=== PATIENT | female | born 1980 ===

== ENCOUNTER 2022-08-12 16:48 | Emergency (ER) | payer OTHER ==
--- OUTSIDE RECORDS SUMMARY | 2022-08-12 16:53 | XMS REPORT | Continuity of Care Document ---
:1980 Author Organization [facility] t Address [address] [place] [address] [address] [place] [address] Care Team Providers Name Role Phone Dulce Abbott Attending Clinician Unavailable DORIAN_ADAC_Cathey Attending Clinician Unavailable Binta Hood Attending Clinician [phone] Sherry Pineda Attending Clinician Unavailable Belén Blackburn Attending Clinician Unavailable Radiology Attending Clinician Unavailable RADIOLOGY Attending Clinician Unavailable Dulce Abbott Admitting Clinician Unavailable SHERLY_Cathxenia Admitting Clinician Unavailable Belén Blackburn Admitting Clinician Unavailable Payers Payer Name Policy Type Policy Number Effective Date Expiration Date [facility] [id number] 2012 2022 00:00:00 00:00:00 Problems Condition Condition Condition Status Onset Resolution Last Treating Co mments Source Name Details Category Date Date Treatment Clinician Date Body mass Body Mass Problem Active Zabrina via index 30+ Index 30+ 10-29 Medi marcellus - obesity - Obesity 00:00: 00 Prolapse Prolapse Problem Active [facility] a of female of Female 10-29 Medi marcellus genital Genital 00:00: organs Organs 00 Female Female Problem Active [facility] stress Stress 10-29 Medical incontinen Incontinen 00:00: ce ce 00 Allergies, Adverse Reactions, Alerts Allergy Allergy Status Severity Reaction(s) Onset Inactive Treating Comm ents Source Name Type Date Date Clinician Sulfa DA Active SV REDDENED 2021-02 [facility] (Sulfona SKIN FROM 0-21 Glory an mide HEAD TO TOE 00:00: d Antibiot AND HEADACHE 00 Me dical ics) Center NO KNOWN Drug Active Univers ALLERGIE Class ity of S [facility] SULFA Allergy Active Fever [facility] (SULFONA to Medical MIDE substanc ANTIBIOT e ICS) Social History Social Habit Start Date Stop Date Quantity Comments Source Sex Assigned At [address] [facility] 00:00:00 00:00:00 Medical Branch Smoking Status Start Date Stop Date Source Never Smoker [facility] Medical Unknown if ever smoked [facility] Medications Ordered Filled Start Stop Current Ordering Indication Dosage Frequency Signature Comments Components Source Medication Medication Date Date Medication? Clinician (SIG) Name Name Advil Advil No Advil [facility] B12 B12 No B12 [facility] ibuprofen ibuprofen No 1 Q8H ibuprofen [facility] 800 mg 800 mg 800 mg Medical tablet Take tablet Take tablet 1 tablet 1 tablet Take 1 every 8 every 8 tablet hours by hours by every 8 oral route oral route hours by as needed. as needed. oral route postoperati postoperati as needed. ve pain ve pain postoperat mike pain Prilosec Prilosec No Prilosec Zabrina via Medical Probiotic Probiotic No Probiotic [facility] Tylenol Tylenol No Tylenol [facility] Zyrtec 10 Zyrtec 10 No Zyrtec 10 [facility] mg capsule mg capsule mg capsule Medical Take by Take by Take by oral route. oral route. oral route. Advil Advil No Advil [facility] B12 B12 No B12 [facility] fluconazole fluconazole No fluconazol [facility] 200 mg 200 mg e 200 mg Medical tablet TAKE tablet TAKE tablet 1 TABLET 1 TABLET TAKE 1 ORALLY ONCE ORALLY ONCE TABLET AND REPEAT AND REPEAT ORALLY IN 72 HOURS IN 72 HOURS ONCE AND REPEAT IN 72 HOURS nitrofurant nitrofurant No 1capsul Q12H nitrofuran [facility] oin oin e(s) toin Medical monohydrate monohydrate monohydrat /macrocryst /macrocryst e/macrocry als 100 mg als 100 mg stals 100 capsule capsule mg capsule Take 1 Take 1 Take 1 capsule capsule capsule every 12 every 12 every 12 hours by hours by hours by oral route oral route oral route for 7 days. for 7 days. for 7 days. Prilosec Prilosec No Prilosec Zabrina via Medical Probiotic Probiotic No Probiotic [facility] Tylenol Tylenol No Tylenol [facility] Urogesic-Bl Urogesic-Bl No 1 Q6H Urogesic-B [facility] ue 81.6 ue 81.6 lue 81.6 Medic al mg-40.8 mg-40.8 mg-40.8 mg-0.12 mg mg-0.12 mg mg-0.12 mg tablet Take tablet Take tablet 1 tablet 1 tablet Take 1 every 6 every 6 tablet hours by hours by every 6 oral route oral route hours by as needed. as needed. oral route as needed. Zyrtec 10 Zyrtec 10 No Zyrtec 10 [facility] mg capsule mg capsule mg capsule Medical Take by Take by Take by oral route. oral route. oral route. Advil Advil No Advil [facility] B12 B12 No B12 [facility] gabapentin gabapentin No 1capsul Q1D gabapentin [facility] 300 mg 300 mg e(s) 300 mg Medical capsule capsule capsule Take 1 Take 1 Take 1 capsule capsule capsule every day every day every day by oral by oral by oral route at route at route at bedtime for bedtime for bedtime 90 days. 90 days. for 90 days. Prilosec Prilosec No Prilosec Zabrina via Medical Probiotic Probiotic No Probiotic [facility] Tylenol Tylenol No Tylenol [facility] Zyrtec 10 Zyrtec 10 No Zyrtec 10 [facility] mg capsule mg capsule mg capsule Medical Take by Take by Take by oral route. oral route. oral route. Advil Advil No Advil [facility] B12 B12 No B12 [facility] nitrofurant nitrofurant No nitrofuran [facility] oin oin toin Medical monohydrate monohydrate monohydrat /macrocryst /macrocryst e/macrocry als 100 mg als 100 mg stals 100 capsule capsule mg capsule Take 1 Take 1 Take 1 capsule(s) capsule(s) capsule(s) after each after each after each visit visit visit Prilosec Prilosec No Prilosec Zabrina via Medical Probiotic Probiotic No Probiotic [facility] Tylenol Tylenol No Tylenol [facility] Zyrtec 10 Zyrtec 10 No Zyrtec 10 [facility] mg capsule mg capsule mg capsule Medical Take by Take by Take by oral route. oral route. oral route. Advil Advil No Advil [facility] B12 B12 No B12 [facility] docusate docusate No 2capsul Q1D docusate [facility] sodium 100 sodium 100 e(s) sodium 100 Medical mg capsule mg capsule mg capsule Take 2 Take 2 Take 2 capsules capsules capsules every day every day every day by oral by oral by oral route at route at route at bedtime for bedtime for bedtime 90 days. 90 days. for 90 Stool Stool days. softener softener Stool softener hydrocodone hydrocodone No 1 Q6H hydrocodon [facility] 5 5 e 5 Medical mg-acetamin mg-acetamin mg-acetami ophen 325 ophen 325 nophen 325 mg tablet mg tablet mg tablet Take 1 Take 1 Take 1 tablet tablet tablet every 6 every 6 every 6 hours by hours by hours by oral route oral route oral route as needed. as needed. as needed. for for for postoperati postoperati postoperat ve pain ve pain mike pain ibuprofen ibuprofen No 1 Q8H ibuprofen [facility] 800 mg 800 mg 800 mg Medical tablet Take tablet Take tablet 1 tablet 1 tablet Take 1 every 8 every 8 tablet hours by hours by every 8 oral route oral route hours by as needed. as needed. oral route postoperati postoperati as needed. ve pain ve pain postoperat mike pain nitrofurant nitrofurant No nitrofuran [facility] oin oin toin Medical monohydrate monohydrate monohydrat /macrocryst /macrocryst e/macrocry als 100 mg als 100 mg stals 100 capsule 1 capsule 1 mg capsule capsule capsule 1 capsule nightly if nightly if nightly if discharged discharged discharged home with home with home with [facility] catheter catheter catheter Prilosec Prilosec No Prilosec Zabrina via Medical Probiotic Probiotic No Probiotic [facility] Tylenol Tylenol No Tylenol [facility] Zyrtec 10 Zyrtec 10 No Zyrtec 10 [facility] mg capsule mg capsule mg capsule Medical Take by Take by Take by oral route. oral route. oral route. Advil Advil No Advil [facility] B12 B12 No B12 [facility] docusate docusate No 2capsul Q1D docusate [facility] sodium 100 sodium 100 e(s) sodium 100 Medical mg capsule mg capsule mg capsule Take 2 Take 2 Take 2 capsules capsules capsules every day every day every day by oral by oral by oral route at route at route at bedtime for bedtime for bedtime 90 days. 90 days. for 90 Stool Stool days. softener softener Stool softener ibuprofen ibuprofen No 1 Q8H ibuprofen [facility] 800 mg 800 mg 800 mg Medical tablet Take tablet Take tablet 1 tablet 1 tablet Take 1 every 8 every 8 tablet hours by hours by every 8 oral route oral route hours by as needed. as needed. oral route postoperati postoperati as needed. ve pain ve pain postoperat mike pain Prilosec Prilosec No Prilosec Zabrina via Medical Probiotic Probiotic No Probiotic [facility] Tylenol Tylenol No Tylenol [facility] Zyrtec 10 Zyrtec 10 No Zyrtec 10 [facility] mg capsule mg capsule mg capsule Medical Take by Take by Take by oral route. oral route. oral route. Advil Advil No Advil [facility] B12 B12 No B12 [facility] nitrofurant nitrofurant No nitrofuran [facility] oin oin toin Medical monohydrate monohydrate monohydrat /macrocryst /macrocryst e/macrocry als 100 mg als 100 mg stals 100 capsule capsule mg capsule Take 1 Take 1 Take 1 capsule(s) capsule(s) capsule(s) after each after each after each visit visit visit Prilosec Prilosec No Prilosec Zabrina via Medical Probiotic Probiotic No Probiotic [facility] Tylenol Tylenol No Tylenol [facility] Zyrtec 10 Zyrtec 10 No Zyrtec 10 [facility] mg capsule mg capsule mg capsule Medical Take by Take by Take by oral route. oral route. oral route. Vital Signs Vital Name Observation Time Observation Value Comments Source BP Diastolic 2022-01-26 00:00:00 90 mm[Hg] [facility]e [facility] Height 2022-01-26 00:00:00 66 [in_i] [facility] BP Systolic 2022-01-26 00:00:00 124 mm[Hg] Janee Calvert [facility] BP Diastolic 2022-01-06 00:00:00 79 mm[Hg] [facility] Height 2022-01-06 00:00:00 66 [in_i] [facility] BMI (Body Mass Index) 2022-01-06 00:00:00 34.5 kg/m2 [facility] BP Systolic 2022-01-06 00:00:00 123 mm[Hg] [facility] Body Weight 2022-01-06 00:00:00 214 [lb_av] [facility] BP Diastolic 2021-12-30 00:00:00 86 mm[Hg] [facility] Height 2021-12-30 00:00:00 66 [in_i] [facility] BMI (Body Mass Index) 2021-12-30 00:00:00 34.5 kg/m2 [facility] BP Systolic 2021-12-30 00:00:00 134 mm[Hg] [facility] Body Weight 2021-12-30 00:00:00 214 [lb_av] [facility] BP Diastolic 2021-12-16 00:00:00 78 mm[Hg] [facility] Height 2021-12-16 00:00:00 66 [in_i] [facility] BMI (Body Mass Index) 2021-12-16 00:00:00 35.5 kg/m2 [facility] BP Systolic 2021-12-16 00:00:00 131 mm[Hg] [facility] Body Weight 2021-12-16 00:00:00 220 [lb_av] [facility] Body Weight 2021-10-17 00:00:00 221 [lb_av] [facility] BP Diastolic 2021-10-17 00:00:00 88 mm[Hg] [facility] Height 2021-10-17 00:00:00 66 [in_i] [facility] BMI (Body Mass Index) 2021-10-17 00:00:00 35[facility]7 [facility] 2021-10-17 00:00:00 131 mm[Hg] [facility] M ed[facility] Procedures Procedure Date / Time Performing Clinician Source Performed Hysterectomy - Laparoscopy 2021-12-02 00:00:00 [facility] Prolapse, Lapro Repr: 2021-12-02 00:00:00 [facility] Uterosacral Lig Colpopexy MR ANKLE LEFT WO CONTRAST 2020-04-17 14:33:38 Requisition, Paper [facility] Cholecystectomy 2007-02-08 00:00:00 [facility] Plan of Care Planned Activity Planned Date Details Comments Source Diagnostic Test 2022-01-26 00:00:00 urinalysis, complete [facility] Pending [code = urinalysis, complete] Diagnostic Test 2022-01-26 00:00:00 culture, urine [code [facility] Pending = culture, urine] Encounters Start End Encounter Admission Attending Care Care Encounter Source Date/Time Date/Time Type Type Clinicians Facility Department ID 2022-03-13 2022-03-13 Outpatient MEAGAN Abbott, [facility] [id number] [facility] 12:00:00 12:00:[address] 2022-01-26 2022-01-26 Outpatient _[facility] PRIV PRIV [id number] [facility] 00:00:00 00:00:00 _Cathey [id number] Medica l 2022-01-26 2022-01-26 Outpatient _[facility] PRIV PRIV [id number] [facility] 00:00:00 00:00:00 _Cathey [id number] Medica l 2022-01-26 2022-01-26 Binta [facility] [id number] [facility] 00:00:00 00:00:00 [facility] luis manuel Hood _[facility] MD: [address], Office* [address], [place] [address] , Ph. [phone] 2022-01-19 2022-01-19 Outpatient _[facility] PRIV PRIV [id number] [facility] 00:00:00 00:00:00 _Cathey [id number] Medica l 2022-01-19 2022-01-19 Outpatient GC_[facility] PRIV PRIV [id number] [facility] 00:00:00 00:00:00 _Cathey [id number] Medica l 2022-01-06 2022-01-06 Outpatient GC_[facility] PRIV PRIV [id number] [facility] 00:00:00 00:00:00 _Cathey [id number] Medica l 2022-01-06 2022-01-06 Binta [facility] [id number] [facility] 00:00:00 00:00:00 [facility] Medic luis manuel Hood GC_[facility] MD: [address], Office* [address], [place] [address] , Ph. [phone] 2022-01-05 2022-01-05 Outpatient GC_[facility] PRIV PRIV [id number] [facility] 00:00:00 00:00:00 _Sana [id number] Medica l 2021-12-30 2021-12-30 Outpatient GC_[facility] PRIV PRIV [id number] [facility] 00:00:00 00:00:00 _Sana [id number] Medica l 2021-12-30 2021-12-30 Colleen [facility] [id number] [facility] 00:00:00 00:00:00 Daniel [employer]: Health - Fl dical [address] GC_[facility] Rebekah, _[address], [place] [address] , Ph. [phone] 2021-12-16 2021-12-16 Outpatient GC_[facility] PRIV PRIV [id number] [facility] 00:00:00 00:00:00 _Sana [id number] Medica l 2021-12-16 2021-12-16 Colleen [facility] [id number] [facility] 00:00:00 00:00:00 OLAYINKA Sanchez: Health - Me dical [address] GC_[facility] [address]bekah, _[address], [place] [address] , Ph. [phone] 2021-12-15 2021-12-15 Outpatient GC_[facility] PRIV PRIV [id number] [facility] 00:00:00 00:00:00 _Sana [id number] Medica l 2021-12-14 2021-12-14 Outpatient GC_[facility] PRIV PRIV [id number] [facility] 00:00:00 00:00:00 _Sana [id number] Medica l 2021-12-05 2021-12-05 Outpatient GC_[facility] PRIV PRIV [id number] [facility] 00:00:00 00:00:00 _Cathey [id number] Medica l 2021-12-05 2021-12-05 Binta [facility]:00[facility]00 [facility]00[facility] SHERLY Rivera MD: Lenora [address], Office* [address], [place] [address] , Ph. [phone] 2021-12-04 2021-12-04 Outpatient GC_[facility] PRIV PRIV [id number] [facility] 00:00:00 00:00:00 _Cathey [id number] Medica l 2021-12-02 2021-12-03 Inpatient MEAGAN Abbott, [facility] [id number].01 [id number] [facility] 05:02:00 11:19:[address] 2021-11-28 2021-11-28 Outpatient GC_[facility] PRIV PRIV [id number] [facility] 00:00:00 00:00:00 _Cathey [id number] Medica l 2021-11-25 2021-11-25 Outpatient GC_[facility] PRIV PRIV [id number] [facility] 00:00:00 00:00:00 _Cathey [id number] Medica l 2021-10-31 2021-10-31 Outpatient GC_[facility] PRIV PRIV [id number] [facility] 00:00:00 00:00:00 _Cathey [id number] Medica l 2021-10-31 2021-10-31 Binta [facility] 00:00:00 00:00:00 Dulce [facility] Medic SHERLY Rivera MD: [address], Office* [address], [place] [address] , Ph. [phone] 2021-10-27 2021-10-27 Outpatient [facility] PRIV PRIV [id number] [facility] 00:00:00 00:00:00 _Cathey [id number] Medica l 2021-10-17 2021-10-17 Outpatient GC_[facility] PRIV PRIV [facility] [id number] [facility] 00:00:00 00:00:00 _Cathey [id number] Medica l 2021-10-17 2021-10-17 Binta PRIV PR - [facility] 00:00:00 00:00:00 Dulce [facility] - Medic al Sana, _[facility] MD: [address], Office* [address], [place] [address] , Ph. [phone] 2021-10-17 2021-10-17 Outpatient Sana, PRIV PRIV [id number] 00:00:00 00:00:00 Binta [id number] Dulce [id number] 2021-10-16 2021-10-16 Outpatient _[facility] PRIV PRIV [facility] [id number] [facility] 00:00:00 00:00:00 _Cathey [id number] Medica l 2021-10-07 2021-10-07 Outpatient [facility] PRIV PRIV [facility] [id number] [facility] 00:00:00 00:00:00 _Cathey [id number] Medica l 2021-05-02 2021-05-02 Outpatient MEAGAN Pineda, [facility] [id number] [facility] 09:44:00 09:44:00 [facility] 2020-08-19 2020-08-19 Outpatient MEAGAN Blackburn, [facility] ROSMERY [id number] [facility] 12:00:00 12:00:00 Belén Wells [facility] 2020-04-17 2020-04-17 Hospital Radiology [facility] [id number] Univers 07:37:04 23:59:00 [id number] [id number] [facility] [address] 2020-04-17 2020-04-17 Outpatient R RADIOLOGY [facility] [id number] Univers 00:00:00 00:00:00 ity [facility] Results Test Description Test Time Test Comments Results Result Comments Source Bacteria identified in Urine by Culture 2022-01-08 00:00:00 Test Item Value Reference Range Interpretation Comme nts Bacteria identified in Urine by Culture (test code = 630-4) no g rowth no growth [facility] MedicalUrinalysis complete panel - [id number] 00:00:00 Test Item Value Reference Range Interpretation Comments Specific gravity of Urine 1.013 1.003-1.030 (test code = 2965-2) pH of Urine (test code = 7.0 5.0-8.0 2756-5) Protein [Presence] in Urine by negative negative Test strip (test code = 81316-0) Glucose [Presence] in Urine by negative negative Test strip (test code = 83865-1) Ketones [Presence] in Urine by negative negative Test strip (test code = 2514-8) Urobilinogen [Units/volume] in 0.2 mg/dL 0.2-1.0 Urine by Test strip (test code = 58614-9) Bilirubin.total [Presence] in negative negative Urine by Test strip (test code = 5770-3) Hemoglobin [Presence] in Urine negative negative by Test strip (test code = 5794-3) Nitrite [Presence] in Urine by negative negative Test strip (test code = 5802-4) Crystals [Presence] in Urine none none by Automated (test code = 22792-6) Leukocytes [Presence] in Urine 0-4 0-4 by Automated (test code = 48747-7) Erythrocytes [Presence] in none seen none seen Urine by Automated (test code = 14411-6) RBC casts [Presence] in Urine none seen 0-1 by Computer assisted method (test code = 03112-3) Hyaline casts [Presence] in 0-4 0-4 Urine by Automated (test code = 39025-9) Epithelial cells [#/area] in few none-few Urine sediment by Automated count (test code = 58142-8) Granular casts [Presence] in none seen 0-1 Urine by Computer assisted method (test code = 71060-7) Bacteria [#/area] in Urine none none-few sediment by Automated count (test code = 43395-5) Leukocyte esterase [Presence] negative negative in Urine by Test strip (test code = 5799-2) Color of Urine (test code = yellow yellow, straw, katie 5778-6) Character of Urine (test code clear clear = 68361-0) [facility] MedicalBacteria identified in Urine by [id number] 00:00:00 Test Item Value Reference Range Interpretation Comments Bacteria identified in Urine by no growth no growth Culture (test code = 630-4) [facility] MedicalUrinalysis complete panel - [id number] 00:00:00 Test Item Value Reference Range Interpretation Comments Specific gravity of Urine 1.009 1.003-1.030 (test code = 2965-2) pH of Urine (test code = 8.0 5.0-8.0 2756-5) Protein [Presence] in Urine by negative negative Test strip (test code = 74675-1) Glucose [Presence] in Urine by negative negative Test strip (test code = 63357-3) Ketones [Presence] in Urine by negative negative Test strip (test code = 2514-8) Urobilinogen [Units/volume] in 0.2 mg/dL 0.2-1.0 Urine by Test strip (test code = 38963-1) Bilirubin.total [Presence] in negative negative Urine by Test strip (test code = 5770-3) Hemoglobin [Presence] in Urine negative negative by Test strip (test code = 5794-3) Nitrite [Presence] in Urine by negative negative Test strip (test code = 5802-4) Crystals [Presence] in Urine few none A by Automated (test code = 60172-5) Leukocytes [Presence] in Urine 0-4 0-4 by Automated (test code = 64766-0) Erythrocytes [Presence] in none seen none seen Urine by Automated (test code = 44342-0) RBC casts [Presence] in Urine none seen 0-1 by Computer assisted method (test code = 01507-7) Hyaline casts [Presence] in 0-4 0-4 Urine by Automated (test code = 61859-5) Epithelial cells [#/area] in few none-few Urine sediment by Automated count (test code = 17048-8) Granular casts [Presence] in none seen 0-1 Urine by Computer assisted method (test code = 95674-1) Bacteria [#/area] in Urine none none-few sediment by Automated count (test code = 07976-3) Leukocyte esterase [Presence] negative negative in Urine by Test strip (test code = 5799-2) Color of Urine (test code = yellow yellow, straw, katie 5778-6) Character of Urine (test code clear clear = 18384-4) [facility] MedicalBacteria identified in Urine by [id number] 00:00:00 Test Item Value Reference Range Interpretation Comments Bacteria identified in Urine by no growth no growth Culture (test code = 630-4) [facility] MedicalUrinalysis complete panel - [id number] 00:00:00 Test Item Value Reference Range Interpretation Comments Specific gravity of Urine 1.009 1.003-1.030 (test code = 2965-2) pH of Urine (test code = 8.0 5.0-8.0 2756-5) Protein [Presence] in Urine by negative negative Test strip (test code = 62374-9) Glucose [Presence] in Urine by negative negative Test strip (test code = 69684-9) Ketones [Presence] in Urine by negative negative Test strip (test code = 2514-8) Urobilinogen [Units/volume] in 0.2 mg/dL 0.2-1.0 Urine by Test strip (test code = 98486-5) Bilirubin.total [Presence] in negative negative Urine by Test strip (test code = 5770-3) Hemoglobin [Presence] in Urine negative negative by Test strip (test code = 5794-3) Nitrite [Presence] in Urine by negative negative Test strip (test code = 5802-4) Crystals [Presence] in Urine few none A by Automated (test code = 17332-6) Leukocytes [Presence] in Urine 0-4 0-4 by Automated (test code = 56949-5) Erythrocytes [Presence] in none seen none seen Urine by Automated (test code = 15718-2) RBC casts [Presence] in Urine none seen 0-1 by Computer assisted method (test code = 84267-3) Hyaline casts [Presence] in 0-4 0-4 Urine by Automated (test code = 98783-5) Epithelial cells [#/area] in few none-few Urine sediment by Automated count (test code = 97923-9) Granular casts [Presence] in none seen 0-1 Urine by Computer assisted method (test code = 90835-6) Bacteria [#/area] in Urine none none-few sediment by Automated count (test code = 50452-6) Leukocyte esterase [Presence] negative negative in Urine by Test strip (test code = 5799-2) Color of Urine (test code = yellow yellow, straw, katie 5778-6) Character of Urine (test code clear clear = 05122-8) Janee [id number] 17:38:00 Test Item Value Reference Range Interpretation Comments SURGICAL (test code = SR) R UN DATE: 12/03/21 [facility] PAGE 1 RUN TIME: 1738 Specimen Inquiry RUN USER: INTERFACE P ATIENT: MAYITO CASTORENA [facility] U #: [id number] AGE/SX: 41/F ROOM: [facility] RE12/02/21JOYCE DR: Dulce Abbott MD : 80 BED: A DIS: 12/03/21 STATUS: DIS Sandrine TLOC: SPEC #: [id number] RECD: 12/02/21 STATUS: PATRICIA GONSALVES #: [id number] NEELAM: 12/02/[address] [facility] [address]: Dulce Abbtot MD ENTERED: 12/02/21 SP TYPE: SURGICAL OTHR DR: Binta Hood MD, Jana K MDORDERED: ANATOMIC SPEC/5, SPEC TRACK, 05175/4, [id number] COPIES TO: Binta Hood MD [address] [facility] [address] [place], [place] [id number] [email or web address] Kelsea Watters MD [address] [facility] [address] [place], [place] [address] Dulce Abbott MD [address] [facility] [address] [place] [address] [email or web address] PROCEDURES: 92126 (12/02/21) 66841 (12/02/21) TISSUES: A. PELVIC ADHESIONS - LEFT PELVIC SIDEWALL B. CUL-DE-SAC, PERITONEUM - RIGHT POSTERIOR CULDESAC C. CUL-DE-SAC, PERITONEUM - LEFT POSTERIOR CULDESAC D. PELVIC ADHESIONS - RIGHT PELVIC SIDEWALL E. UTERUS W/WO TUBES OVARIES NON NEOPLASTIC/PROLAPSE - UTERUS, CERVIX, BILATERAL FALLOPIAN TUBES FINAL DIAGNOSIS A. 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 SOFT TISSUE, RIGHT POSTERIOR CUL-DE-SAC, BIOPSY:- positive for endometriosis as well as calcifications C. SOFT TISSUE, LEFT POSTERIOR CUL-DE-SAC, BIOPSY:- fibrovascular connective tissue with mild chronic inflammation D. 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 UTERUS AND BILATERAL FALLOPIAN TUBES, HYSTERECTOMY WITH BILATERAL SALPINGECTOMY:- 231 gram specimen- secretory endometrium; negative for hyperplasia or malignancy -submucosal leiomyoma measuring 1.5 cm in greatest uwlqcepgw-zoig-pp-moderate chronic cervicitis; negative for dysplasia or malignancy-bilateral fallopian tubes with congestion and edema GROSS DESCRIPTION Specimen received in formalin in 5 parts each labeled with patient's name, MRN, and date ofbirth.A. Specimen is labeled left pelvic sidewall. It consists of a fragment of soft haynes-grayfocally congested tissue measuring 1.5 x 1.2 x 0.2 cm in maximum dimensions. Entirelysubmitted in cassette A1. B. Specimen is labeled right posterior cul-de-sac. It consists of a soft to firmtan-yellow tissue portion measuring 1.4 x 0.7 x 0.5 cm in maximum dimensions. Specimenbisected and entirely submitted in cassette B1. C. Specimen is labeled left posterior cul-de-sac. Consists of a piece of soft haynes yellowtissue measuring 0.4 x 0.3 x 0.2 cm in maximum dimensions. Entirely submitted in cassetteC1. D. Specimen is labeled right pelvic sidewall. It consists of a fragment of soft haynes-grayfocally congested tissue portion measuring 1.3 x 0.7 x 0.2 cm in maximum dimensions. Entirely submitted in cassette D1. E. Specimen is labeled uterus, cervix, bilateral fallopian tubes. It consists of ahysterectomy specimen with bilateral fallopian tubes weighing in aggregate 231 g. Uterusmeasures 12.1 cm in length from fundus to distal most portion of exocervix, 7.2 cm inmaximum cornu to cornu width and 5.5 cm anteroposteriorly. Serosa is haynes-brown to focallycongested and smooth. Cervix is 3.6 cm in length and 3.7 cm in greatest diameter. Portiovaginalis is purple haynes edematous and focally wrinkled. Os is slit-like and 1.5 cm across.cervical canal has haynes rugated appearance. Endometrial cavity is 5.5 cm in length and 3.1cm in maximum width. Endometrium is haynes pink to hemorrhagic appearing and fluffy. Itranges from 0.1 to 0 0.2 cm in thickness. Myometrium is haynes pink to focally trabeculatedappearing. It measures up to 2.8 cm in thickness. A well-circumscribed firm tansubmucosal nodule is present measuring 1.5 cm in greatest dimension. The right fallopiantube with fimbria is 7.5 cm in length and 0.6 cm in greatest diameter. Left fallopian tubewith fimbria is 6.7 cm in length and 0.4 cm in greatest diameter. Serosa of both is haynes-brown to red-brown smooth. Sectioning of both reveals partially patent lumen containingsome hemorrhagic material. Commercial Management Accountant sections are submitted as follows: E 1-E2 anterior and posterior cervix E3-E4 anterior endomyometrium E5-E6 posterior endomyometrium E 7 nodule E8-E9 sales and service representative sections of right fallopian tube with entire fimbria CONTINUED ON NEXT PAGE R UN DATE: 12/03/21 [facility] PAGE 3 RUN TIME: 1738 Specimen Inquiry RUN USER: INTERFACE S PEC #: [id number] PATIENT: MAYITO CASTORENA #[id number] (Continued) GROSS DESCRIPTION (Continued) E10-A11 sales and service representative sections of left fallopian tube with entire /25/22 Technical component performed at [facility],[place] [address] , [place] [address] Unless gross only, the diagnosis is based upon microscopic examination.Immunohistochemistr y: This test was developed and its performance characteristicsdetermined by this laboratory. It has not been approved nor does it need approval by [place] FDA. Appropriate positive and negative controls are reviewed and judged to beacceptable. This laboratory is certified under the Clinical Laboratory ImprovementAmendments (CLIA-88) as qualified to perform high complexity clinical laboratory testing. CLINICAL INFORMATION 12/02/21, OUT OF BODY 0810A, IN FORMALIN 1058A, ADENOMYOSIS, ENDOMETRIOSIS, CYSTOCELE,UTERINE PROLAPSE. -------- Signed SIGNATURE ON FILE Mercedes Agustin 12/03/21 1738 END OF REPORT CBC W/AUTO [id number] 06:07:00 Test Item Value Reference Range Interpretation Comments WHITE BLOOD CELL (test code = WBC) 9.4 K/mm3 6.5-12.3 N RED BLOOD CELL (test code = RBC) 3.84 M/mm3 3.51-4.69 N HEMOGLOBIN (test code = HGB) 11.3 g/dL 10.1-13.8 N HEMATOCRIT (test code = HCT) 33.7 % 32.5-41.8 N MEAN CELL VOLUME (test code = MCV) 87.8 fL 84.6-96.6 N MEAN CELL HGB (test code = MCH) 29.4 pg 27.3-33.9 N MEAN CELL HGB CONCETRATION (test 33.5 gm/dL 32.0-34.2 N code = MCHC) RED CELL DISTRIBUTION WIDTH (test 12.9 % 12.2-16.3 N code = RDW) PLATELET COUNT (test code = PLT) 215 K/mm3 134-363 N MEAN PLATELET VOLUME (test code = 10.4 fL 9.2-12.7 N MPV) NEUTROPHIL % (test code = NT%) 71.7 % 57.9-77.3 N LYMPHOCYTE % (test code = LY%) 17.3 % 14.5-29.7 N MONOCYTE % (test code = MO%) 10.5 % 3.6-10.2 H EOSINOPHIL % (test code = EO%) 0.1 % 0.0-3.0 N BASOPHIL % (test code = BA%) 0.1 % 0.1-0.9 N NEUTROPHIL # (test code = NT#) 6.7 K/mm3 LYMPHOCYTE # (test code = LY#) 1.6 K/mm3 MONOCYTE # (test code = MO#) 1.0 K/mm3 EOSINOPHIL # (test code = EO#) 0.01 K/mm3 BASOPHIL # (test code = BA#) 0.0 K/mm3 RBC MORPHOLOGY REQUIRED (test code NORMAL NORMAL = RBCM) PLATELET MORPHOLOGY REQUIRED (test NORMAL NORMAL code = PLTMR) UR HCG [id number] 06:43:00 Test Item Value Reference Range Interpretation Comments UR HCG QUAL (test NEGATIVE 1. Very di lute urine code = HCGQLU) specimens, as indicated by a lowspecific g ravity, may not contain rep resentative levels ofhCG. 2 . False negative result s may occur when the levels of hCGare below the sensi tivity level of the test. If is still suspec anna, a first morningurine sp ecimen should be colle cted 48 hours later and tested. test, [id number] 06:30:00 Test Item Value Reference Range Interpretation Comments ur HCG qual (test code = ur HCG negative qual) performing lab: (test code = performing lab:) [facility] [id number] 06:30:00 Test Item Value Reference Range Interpretation Comments ur HCG qual (test code = ur HCG negative qual) performing lab: (test code = performing lab:) [facility], [id number] 06:30:00 Test Item Value Reference Range Interpretation Comments ur HCG qual (test code = ur HCG negative qual) performing lab: (test code = performing lab:) [facility]ITIS B [id number] 21:27:00 Test Item Value Reference Range Interpretation Comments AG HEPATITIS B SURFACE (test code NONREACTIVE NONREACTIVE = HBSAG) AB HEPATITIS C [id number] 21:27:00 Test Item Value Reference Range Interpretation Comments AB HEPATITIS C (test code = NONREACTIVE NONREACTIVE HCVAB) SIGNAL TO CUTOFF (test code = 0.02 <0.80 N CUTOFF) AB HIV 1 21:27:00 Test Item Value Reference Range Interpretation Comments AB HIV 1 2 (test NONREACTIVE NONREACTIVE Done by [facility] code = [id number]) 4th Gen HIV Ag/Ab Combo Screen URINALYSIS [id number] 17:21:00 Test Item Value Reference Range Interpretation Comments UA COLOR (test code = YELLOW YELLOW COLU) UA APPEARANCE (test CLEAR CLEAR code = APPU) UA GLUCOSE DIPSTICK NEGATIVE NEGATIVE (test code = DGLUU) UA BILIRUBIN DIPSTICK NEGATIVE NEGATIVE (test code = BILU) UA KETONE DIPSTICK NEGATIVE NEGATIVE (test code = KETU) UA SPECIFIC GRAVITY 1.010 1.001-1.035 N (test code = SGU) UA BLOOD DIPSTICK NEG NEGATIVE (test code = STACY) UA PH DIPSTICK (test 7.0 5-9 code = ANUSHKA) UA PROTEIN DIPSTICK NEGATIVE NEGATIVE (test code = PROU) UA UROBILINIOGEN 0.2 EU/dL See_Comment [Automated DIPSTICK (test code = messag e] The URO) system which generated this result transmit anna reference range : <=1.0. The reference range was not used to interpret this result as normal/abnormal . UA NITRITE DIPSTICK NEGATIVE NEGATIVE (test code = ANSLEY) UA LEUKOCYTE ESTERASE NEG NEGATIVE DIPSTICK (test code = LEUU) UA WBC (test code = 0-2 #/hpf NONE SEEN WBCU) UA RBC (test code = 0-2 #/hpf NONE SEEN RBCU) UA EPITHELIAL CELLS NONE SEEN #/hpf NONE SEEN (test code = EPIU) UA BACTERIA (test NEGATIVE #/hpf NONE SEEN code = BACU) URINE SAMPLE: CLEAN CATCHCOVID 19 Asymptomatic IH [id number] 17:04:00 Test Item Value Reference Range Interpretation Comments COVID 19 NEGATIVE NEGATIVE This test has b een Asymptomatic IH AG authorize d only for the (test code = detection ofpro teins from COVNONPUIAG) SARS-CoV-2, not for any other viruses orpathogens. Ne gative results should be treated as presumptive andconfirmed wi th a molecular assay , if necessary for patientmanageme nt. Negative result s do not rule out COVID- 19 andshould not b e used as the sole basis for treatment orpat ient management deci sions, including infec tion controldecision s. Negative result s should be considered i n thecontext of a patient's recent exposure s, history and thepresence of clinical signs and symptoms consis tent withCOVID-19. T his test has not been FD A cleared or approved; th e test hasbeen authori zed by FDA under an Emerge ncy Use Authorization(E UA) for use by manish galarza certified under the CLIA thatmeet the re quirements to perform mode rate, high or waivedcomple xity tests. This gricel t is authorized for use at thePoint of Car e (POC), i.e., in patien t care settingsoperati ng under a CLIA Certificat e of Waiver, Certifi delgado ofCompliance, o r Certificate of Accreditation. This test is only authori zed for the duration of thedeclaration that circumstances e xist justifying theauthorizatio n of emergency use o f in vitro diagnostic test sfor detection and/o r diagnosis of CO VID-19 under Xulcrxa49 4(b)(1) of the Act, 21 U.S .C. 360bbb-3(b)(1), unless theauthorizatio n is terminated or r evoked sooner. HCG SERUM [id number] 16:30:00 Test Item Value Reference Range Interpretation Comments HCG SERUM QUAL (test code = HCGQL) NEGATIVE BASIC METABOLIC [id number] 15:58:00 Test Item Value Reference Range Interpretation Comments SODIUM (test code = NA) 135 mEq/L 135-145 N POTASSIUM (test code = K) 3.8 mEq/L 3.5-5.0 N CHLORIDE (test code = CL) 102 mEq/L 100-115 N CARBON DIOXIDE (test code = CO2) 28 mEq/L 22-31 N ANION GAP (test code = GAP) 9.30 10-20 L GLUCOSE (test code = GLU) 82 mg/dL 65-110 N BLOOD UREA NITROGEN (test code = 10 mg/dL 7-18 N BUN) GLOMERULAR FILTRATION RATE (test 92 ml/min >60 N code = GFR) CREATININE (test code = CREAT) 0.7 mg/dL 0.5-1.0 N CALCIUM (test code = CA) 8.7 mg/dL 8.4-10.2 N CBC W/AUTO [id number] 15:02:00 Test Item Value Reference Range Interpretation Comments WHITE BLOOD CELL (test code = WBC) 7.3 K/mm3 6.5-12.3 N RED BLOOD CELL (test code = RBC) 4.45 M/mm3 3.51-4.69 N HEMOGLOBIN (test code = HGB) 13.0 g/dL 10.1-13.8 N HEMATOCRIT (test code = HCT) 38.9 % 32.5-41.8 N MEAN CELL VOLUME (test code = MCV) 87.4 fL 84.6-96.6 N MEAN CELL HGB (test code = MCH) 29.2 pg 27.3-33.9 N MEAN CELL HGB CONCETRATION (test 33.4 gm/dL 32.0-34.2 N code = MCHC) RED CELL DISTRIBUTION WIDTH (test 12.7 % 12.2-16.3 N code = RDW) PLATELET COUNT (test code = PLT) 237 K/mm3 134-363 N MEAN PLATELET VOLUME (test code = 11.0 fL 9.2-12.7 N MPV) NEUTROPHIL % (test code = NT%) 64.2 % 57.9-77.3 N LYMPHOCYTE % (test code = LY%) 21.2 % 14.5-29.7 N MONOCYTE % (test code = MO%) 11.4 % 3.6-10.2 H EOSINOPHIL % (test code = EO%) 2.6 % 0.0-3.0 N BASOPHIL % (test code = BA%) 0.3 % 0.1-0.9 N NEUTROPHIL # (test code = NT#) 4.7 K/mm3 LYMPHOCYTE # (test code = LY#) 1.6 K/mm3 MONOCYTE # (test code = MO#) 0.8 K/mm3 EOSINOPHIL # (test code = EO#) 0.19 K/mm3 BASOPHIL # (test code = BA#) 0.0 K/mm3 RBC MORPHOLOGY REQUIRED (test code NORMAL NORMAL = RBCM) PLATELET MORPHOLOGY REQUIRED (test NORMAL NORMAL code = PLTMR) Bacteria identified in Urine by [id number] 00:00:00 Test Item Value Reference Range Interpretation Comments Bacteria identified in Urine by no growth no growth Culture (test code = 630-4) [facility] - [id number] 00:00:00 Test Item Value Reference Range Interpretation Comments Specific gravity of Urine 1.007 1.003-1.030 (test code = 2965-2) pH of Urine (test code = 6.0 5.0-8.0 2756-5) Protein [Presence] in Urine by negative negative Test strip (test code = 52732-5) Glucose [Presence] in Urine by negative negative Test strip (test code = 48030-5) Ketones [Presence] in Urine by negative negative Test strip (test code = 2514-8) Urobilinogen [Units/volume] in 0.2 mg/dL 0.2-1.0 Urine by Test strip (test code = 75902-0) Bilirubin.total [Presence] in negative negative Urine by Test strip (test code = 5770-3) Hemoglobin [Presence] in Urine negative negative by Test strip (test code = 5794-3) Nitrite [Presence] in Urine by negative negative Test strip (test code = 5802-4) Crystals [type] in Urine none none sediment by Light microscopy (test code = 5782-8) Leukocytes [#/area] in Urine 0-4 0-4 sediment by Microscopy high power field (test code = 5821-4) Erythrocytes [#/area] in Urine none seen none seen sediment by Microscopy high power field (test code = 81311-8) RBC casts [Presence] in Urine none seen 0-1 sediment by Light microscopy (test code = 29806-0) Hyaline casts [Presence] in 0-4 0-4 Urine sediment by Light microscopy (test code = 73594-7) Epithelial cells [Presence] in few none-few Urine sediment by Light microscopy (test code = 75557-6) Granular casts [Presence] in none seen 0-1 Urine sediment by Light microscopy (test code = 21257-1) Bacteria [Presence] in Urine none none-few sediment by Light microscopy (test code = 55908-0) Leukocyte esterase [Presence] negative negative in Urine by Test strip (test code = 5799-2) Color of Urine (test code = yellow yellow, straw, katie 5778-6) Character of Urine (test code clear clear = 02164-9) [facility] PELVIS [id number] 00:00:00 [facility] : 1980 Sex: F Patient Name: MAYITO CASTORENA Unit No: [id number] EXAMS: CPT CODE: [id number] US PELVIS [id number] PROCEDURE INFORMATION: Exam: US Pelvis Complete (Transabdominal), Pelvis (Transvaginal), and US Duplex Artery or Vein (Ovaries) Limited Exam date and time: 05/02/2021 10:25 AM Age: 40 years old Clinical indication: Abdominal or pelvic symptoms: Doppler ovaries; Menstruation abnormalities; Excessive menstruation; Additional info: Menorrhagia, dysmenorrhea; () TECHNIQUE: Imaging protocol: Real-time transabdominal and transvaginal pelvic ultrasound (complete) with image documentation. Transvaginalimaging was used for better evaluation of the endometrium, adnexa, and/or cervix. Real-time duplex ultrasound scan of the arterial or venous flow of the ovaries with B-mode, color Doppler flow and spectral waveform analysis. Complete Pelvis, Limited Duplex. COMPARISON: No relevant prior studies available. FINDINGS: Uterus: Uterus measures 10.6 cm length. The myometrium is mildly heterogeneous. Endometrial stripe measures 1.2 cm thickness. Cervix: Nabothian cysts. Right ovary/adnexa: Right ovary measures 2.6 x 3.4 x 2.0 cm with Doppler flow. Left ovary/adnexa: Left ovary measures 3.0 x 1.8 x 2.5 cm with Doppler flow. Intraperitoneal space: No intraperitoneal fluid. Urinary bladder: The bladder is incompletely imaged. IMPRESSION: Heterogeneous uterine myometrium is nonspecific, occult fibroids or adenomyosis may be considered. An MRI pelvis without and with IV contrast can further evaluate if clinically indicated. at 1215 Reported and signed by: Monico Tracey MD CC: Kelsea Watters MD Technologist: Adrianna Alvarez RDMS Probe: Trnscrbd D/ (6059) GCD.CPS Orig Print D/T: S: 05/02/2021 (1215) The [facility] as NAME: MAYITO CASTORENA Radiology Department PHYS: Sherry Kaye MD [address] : 1980 AGE: 40 SEX: F [place], [place] [address] LOC: F.RAD PHONE #: [phone] EXAM DATE: 05/02/2021 STATUS: REG CLI FAX #: [phone] RAD NO: Page 1 Signed Report Patient Name: MAYITO CASTORENA Unit No: [id number] EXAMS: CPT CODE: [id number] US PELVIS COMPLETE 21458 <Continued> The [facility] NAME: EDUARDOTaniaMAYITO GUILLAUME Radiology Department PHYS: Sherry Kaye MD [address] : 1980 AGE: 40 SEX: F [place], [place] [address] LOC: F.RAD PHONE #: [phone] EXAM DATE: 05/02/2021 STATUS: REG CLI FAX #: [phone] RAD NO: Page 2 Signed Report- US TRANSVAGINAL [id number] 00:00:00 [facility] : 1980 Sex: F Patient Name: MAYITO CASTORENA Unit No: [id number] EXAMS: CPT CODE: [id number] US TRANSVAGINAL W/PELVIS 67705 PROCEDURE INFORMATION: Exam: US Pelvis Complete (Transabdominal), Pelvis (Transvaginal),and US Duplex Artery or Vein (Ovaries) Limited Exam date and time: 05/02/2021 10:25 AM Age: 40 years old Clinical indication: Abdominal or pelvic symptoms: Doppler ovaries; Menstruation abnormalities; Excessive menstruation; Additional info: Menorrhagia, dysmenorrhea; () TECHNIQUE: Imaging protocol: Real-time transabdominal and transvaginal pelvic ultrasound (complete) with image documentation. Transvaginal imaging was used for better evaluation of the endometrium, adnexa, and/or cervix. Real-time duplex ultrasound scan of the arterial or venous flow of the ovaries with B-mode, color Doppler flow and spectral waveform analysis. Complete Pelvis, Limited Duplex. COMPARISON: No relevant prior studies available. FINDINGS: Uterus: Uterus measures 10.6 cm length. The myometrium is mildly heterogeneous. Endometrial stripe measures 1.2 cm thickness. Cervix: Nabothian cysts. Right ovary/adnexa: Right ovary measures 2.6 x 3.4 x 2.0 cm with Doppler flow. Left ovary/adnexa: Left ovary measures 3.0 x 1.8 x 2.5 cm with Doppler flow. Intraperitoneal space: No intraperitoneal fluid. Urinary bladder: The bladder is incompletely imaged. IMPRESSION: Heterogeneous uterine myometrium is nonspecific, occult fibroids or adenomyosis may be considered. An MRI pelvis without and with IV contrast can further evaluate if clinically indicated. at 1215 Reported and signed by: Monico Tracey MD CC: Kelsea Watters MD Technologist: Adrianna Alvarez RDMS Probe: [id number] Trnscrbd D/ (1215) GCD.CPS Orig Print D/T: S: 05/02/2021 (1215) [facility]: MAYITO CAST[facility]NA Radiology Department PHYS: Sherry Kaye MD [address] : 1980 AGE: 40 SEX: F [place], [place] [address] LOC: DREW PHONE #: [phone] EXAM DATE: 05/02/2021 STATUS: REG CLI FAX #: [phone] RAD NO: Page 1 Signed Report Patient Name: MAYITO CASTORENA Unit No: [id number] EXAMS: CPT CODE: [id number] US TRANSVAGINALW/PELVIS 97124 <Continued> [facility] NAME: MAYITO CASTORENA Radiology Department PHYS: Sherry Kaye MD [address] : 1980 AGE: 40 SEX: F [place], [place] [address] LOC: F.RAD PHONE #: [phone] EXAM DATE: 05/02/2021 STATUS: REG [place] #: [phone] RAD NO: Page 2 Signed Report- DUP AB/PEL/SC/[id number] 00:00:00 [facility] : 1980 Sex: F Patient Name: MAYITO CASTORENA Unit No: [id number] EXAMS: CPT CODE: [id number] DUP AB/PEL/SC/[id number] PROCEDURE INFORMATION: Exam: US Pelvis Complete (Transabdominal), Pelvis (Transvaginal), and US Duplex Artery or Vein (Ovaries) Limited Exam date and time: 05/02/2021 10:25 AM Age: 40 years old Clinical indication: Abdominal or pelvic symptoms: Doppler ovaries; Menstruation abnormalities; Excessive menstruation; Additional info: Menorrhagia, dysmenorrhea; () TECHNIQUE: Imaging protocol: Real-time transabdominal and transvaginal pelvic ultrasound (complete) with image documentation. Transvaginal imaging was used for better evaluation of the endometrium, adnexa, and/or cervix. Real-time duplex ultrasound scan of the arterial or venous flow of the ovaries with B-mode, color Doppler flow and spectral waveform analysis. Complete Pelvis, Limited Duplex. COMPARISON: No relevant prior studies available. FINDINGS: Uterus: Uterus measures 10.6 cm length. The myometrium is mildly heterogeneous. Endometrial stripe measures 1.2 cm thickness. Cervix: Nabothian cysts. Right ovary/adnexa: Right ovary measures 2.6 x 3.4 x 2.0 cm with Doppler flow. Left ovary/adnexa: Left ovary measures 3.0 x 1.8 x 2.5 cm with Doppler flow. Intraperitoneal space: No intraperitoneal fluid. Urinary bladder: The bladder is incompletely imaged. IMPRESSION: Heterogeneous uterine myometrium is nonspecific, occult fibroids or adenomyosis may be considered. An MRI pelvis without and with IV contrast can further evaluate if clinically indicated. at 1215 Reported and signed by: Monico Tracey MD CC: Kelsea Watters MD Technologist: Adrianna Alvarez RDMS Probe: Trnscrbd D/ (1215) GCD.CPS Orig Print D/T: S: 05/02/2021 (0416) [facility] Radiology Department PHYS: Sherry Kaye MD [address] : AGE: 40 SEX: F [place], [place] [address] LOC: F.RAD PHONE #: [phone] EXAM DATE: 05/02/2021 STATUS: REG CLI FAX #: [phone] RAD NO: Page 1 Signed Report Patient Name: MAYITO CASTORENA Unit No: [id number] EXAMS: CPT CODE: [id number] DUP AB/PEL/SC/LTD 03291 <Continued> [facility] NAME: MAYITO CASTORENA Radiology Department PHYS: Sherry Sellers MD [address] : 1980 AGE: 40 SEX: F [place], [place] [address] LOC: DREW PHONE #: [phone] EXAM DATE: 05/02/2021 STATUS: REG CLI FAX #: [phone] RADNO: Page 2 Signed ReportMR ANKLE LEFT WO [id number] 15:25:27Questionable resolving contusion at the level of the posterior tubercle ofthe tibia. No talar dome ca rtilage defect or joint effusion. No lateral ligament complex, syndesmotic ligament complex, deltoidligamentcomplex or spring ligament complex derangement. No tendon derangement. EXAM: MRI LEFT ANKLE HISTORY: Pain COMPARISON: None TECHNIQUE AND FINDINGS: 1.5T multiplanar multiweighted MR imaging of the left ankle was performed. BONE AND JOINT: The talar dome hyaline cartilage surfaces are unremarkable. No jointeffusion is present. The sinus Tarsi and tarsal tunnel are within normallimits. Mild focal subcortical T2 signal increase is seen at the posteriortibial tubercle. No coalition is present. Minimal plantar calcanealenthesophyte formation is present. LIGAMENTS /TENDONS/SOFT TISSUES:The deltoidligament complex, syndesmotic ligament complex, lateralligament complex and spring ligament complex are unremarkable. The plantarfascia is unremarkable. The peroneal tendons and flexor/extensor tendonsare within normal limits. No cystic or solid soft tissue mass is seen. [facility], Radiant Results Inft User - 04/17/2020 9:26 AM CSTEXAM:MRI LEFT ANKLEHISTORY: PainCOMPARISON: NoneTECHNIQUE AND FINDINGS:1.5Tmultiplanar multiweighted MR imaging of the left ankle was performed.BONE AND JOINT: The talar dome hyaline cartilage surfaces are unremarkable. No jointeffusion is present. The sinus Tarsi and tarsal tunnel are within normallimits. Mild focal subcortical T2 signal increase is seen at the posteriortibial tubercle. No coalition is present. Minimal plantar calcanealenthesophyte formation is present.LIGAMENTS /TENDONS/SOFT TISSUES:The deltoid ligament complex, syndesmotic ligament complex, lateralligament complex and spring ligament complex are unremarkable. The plantarfascia is unremarkable. The peroneal tendons and flexor/extensor tendonsare within normal limits. No cystic or solid soft tissue massis seen.IMPRESSIONQuestionable resolving contusion at the level of the posterior tubercle ofthe tibia.No talar dome cartilage defect or joint effusion.No lateral ligament complex, syndesmotic ligament complex, deltoid ligamentcomplex or spring ligament complex derangement.No tendon derangement.[facility] Notes Date/Time Note Provider Source 2021-12-03 08:03:00-00:00 [facility] ([facility]) Gynecology Post Prog Note REPORT#:[id number] REPORT STATUS: Signed DATE:12/03/21 TIME: 08 PATIENT: MAYITO CASTORENA UNIT #: [id number] ROOM/BED: [address] : 80 AGE: 41 SEX: F ATTEND: Dulce Abbott MD ADM AUTHOR: Dulce Abbott MD * ALL edits or amendments must be made on the [employer]/computer document * General Post-op: day 1 Status post: RATLHBS, EOE,USLS, TOT, Post repair Subjective Comments: Pt doing well. Donald reg diet. Passing fla tus. Atwood removed this AM and voiding trial now. Pain controlled. Objective General VS/I O: Last Documented: Result Date Time Pulse Ox 94 12/03 0409 B/P 121/73 12/03 0409 B/P Mean 88.9 12/03 040 O2 Delivery Room air 12/03 040 Temp 98.1 12/03 040 Pulse 73 12/03 0409 Resp 18 12/03 040 O2 Flow Rate 6 12/02 1130 24 hour I O ending at 0700: 12/03 0700 12/02 1900 Intake Total 750.00 1700.00 Output Total 1400 1200 Balance -650.00 500.00 Intake, IV 400.00 1700.00 Intake, Oral 350 Output, 225 Estimated Blood Loss Output, Other 225 Output, Urine 1400 750 PATIENT WEIGHT: Weight (lb): 220 Weight (oz): 10.92 Weight (kg): 100.100 Physical Exam General appearance: alert, awake Wound/incision: Location: abd Site condition: edges approximated, incision in tact Abdomen: normal bowel sounds, soft, no distentio n Results Findings/Data: Laboratory Tests 12/03 0530 Hematology WBC (6.5 - 12.3 K/mm3) 9.4 RBC (3.51 - 4.69 M/mm3) 3.84 Hgb (10.1 - 13.8 g/dL) 11.3 Hct (32.5 - 41.8 %) 33.7 MCV (84.6 - 96.6 fL) 87.8 MCH (27.3 - 33.9 pg) 29.4 MCHC (32.0 - 34.2 gm/dL) 33.5 RDW (12.2 - 16.3 %) 12.9 Plt Count (134 - 363 K/mm3) 215 MPV (9.2 - 12.7 fL) 10.4 Neut % (Auto) (57.9 - 77.3 %) 71.7 Lymph % (Auto) (14.5 - 29.7 %) 17.3 [place] % (Auto) (3.6 - 10.2 %) 10.5 H Eos % (Auto) (0.0 - 3.0 %) 0.1 Baso % (Auto) (0.1 - 0.9 %) 0.1 Neut # (Auto) (K/mm3) 6.7 Lymph # (Auto) (K/mm3) 1.6 [place] # (Auto) (K/mm3) 1.0 Eos # (Auto) (K/mm3) 0.01 Baso # (Auto) (K/mm3) 0.0 Diagnosis, Assessment Plan Free Text A P: Doing well. HD stable. Good GI fxn and U/O. Plan: Voiding trial PO pain meds Cont reg diet D/C after voiding trial Rx already at home per Dr. Hood Electronically Signed by Dulce Abbott MD on at 0806 RPT #:[id number] END OF REPORT 2021-12-03 07:08:00-00:00 [facility] ([facility]) Gynecology Post Prog Note REPORT#:[id number] REPORT STATUS: Signed DATE:12/03/21 TIME: 0708 PATIENT: MAYITO CASTORENA UNIT #: [id number] ROOM/BED: [address] : 80 AGE: 41 SEX: F ATTEND: Dulce Abbott MD ADM AUTHOR: Binta Hood MD * ALL edits or amendments must be made on the [employer]/computer document * General ORM Surgeries: Surgery Date and Time: 12/02/2021 0715 Primary Procedure: FIVE PUNCTURES ROBOTIC MARIA ELENA ANNA TOTAL Secondary Procedures: LAPAROSCOPIC UTEROSACRAL- LIGAMENT SUSPEN MIDURETHRAL SLING CYSTOSCOPY WITH PROCEDURE POSTERIOR REPAIR Post-op: day 1 Subjective Patient reports: Yes: ambulating, flatus/bowel movement, pain con trolled, tolerating diet. Objective General VS/I O: Last Documented: Result Date Time Pulse Ox 94 12/03 408 B/P 121/73 12/03 408 B/P Mean 88.9 12/03 408 O2 Delivery Room air 12/03 408 Temp 98.1 12/03 408 Pulse 73 12/03 408 Resp 18 12/03 408 O2 Flow Rate 6 12/02 1130 24 hour I O ending at 0700: 12/03 0700 12/02 1900 Intake Total 750.00 1700.00 Output Total 1400 1200 Balance -650.00 500.00 Intake, IV 400.00 1700.00 Intake, Oral 350 Output, 225 Estimated Blood Loss Output, Other 225 Output, Urine 1400 750 PATIENT WEIGHT: Weight (lb): 220 Weight (oz): 10.92 Weight (kg): 100.100 Physical Exam General appearance: alert, awake, oriented, no a cute distress, pleasant, conversational, mental status normal, no respira tory distress Abdomen: normal bowel sounds, soft Results Findings/Data: Laboratory Tests 12/03 0530 Hematology WBC (6.5 - 12.3 K/mm3) 9.4 RBC (3.51 - 4.69 M/mm3) 3.84 Hgb (10.1 - 13.8 g/dL) 11.3 Hct (32.5 - 41.8 %) 33.7 MCV (84.6 - 96.6 fL) 87.8 MCH (27.3 - 33.9 pg) 29.4 MCHC (32.0 - 34.2 gm/dL) 33.5 RDW (12.2 - 16.3 %) 12.9 Plt Count (134 - 363 K/mm3) 215 MPV (9.2 - 12.7 fL) 10.4 Neut % (Auto) (57.9 - 77.3 %) 71.7 Lymph % (Auto) (14.5 - 29.7 %) 17.3 [place] % (Auto) (3.6 - 10.2 %) 10.5 H Eos % (Auto) (0.0 - 3.0 %) 0.1 Baso % (Auto) (0.1 - 0.9 %) 0.1 Neut # (Auto) (K/mm3) 6.7 Lymph # (Auto) (K/mm3) 1.6 [place] # (Auto) (K/mm3) 1.0 Eos # (Auto) (K/mm3) 0.01 Baso # (Auto) (K/mm3) 0.0 Diagnosis, Assessment Plan Free Text A P: -voiding trial -d/c instructions reviewed Electronically Signed by Binta Hood MD on at 0709 [facility] #:[id number] END OF REPORT 2021-12-02 16:14:00-00:00 [id number] [facility] [address] [address] PATIENT NAME: MAYITO CASTORENA ADMIT DATE: ACCOUNT NO: [id number] ROOM NO: [facility] AGE: 41 SEX: F ADMITTING PHYSICIAN: Dulce Abbott MD ATTENDING PHYSICIAN: Dulce Abbott MD OPERATION DATE: 12/02/2021 PREOPERATIVE DIAGNOSES: 1. Adenomyosis. 2. Menorrhagia. 3. Dysmenorrhea. 4. Stress urinary incontinence. 5. Pelvic prolapse. POSTOPERATIVE DIAGNOSES: 1. Adenomyosis. 2. Menorrhagia. 3. Dysmenorrhea. 4. Stress urinary incontinence. 5. Pelvic prolapse. 6. Stage 1 Endometriosis. PROCEDURES: 1. Robotically assisted total laparoscopic hyste rectomy with bilateral salpingectomy. 2. Robotically assisted laparoscopic excision of endometriosis. 3. Laparoscopic uterosacral ligament suspension by Dr. Hood. 4. Transobturator tape placement by Dr. Hood. 5. Cystourethroscopy by Dr. Hood. 6. Posterior colporrhaphy by Dr. Hood SURGEONS: Dulce Abbott MD, furniture refinisher Binta Hood MD, urogynecologist. PAINT STOCKMAN: NEO [place]. ANESTHESIA: General. ESTIMATED BLOOD LOSS: 150 mL. INTRAVENOUS FLUIDS: 800 mL. URINE OUTPUT: 200 mL of clear urine. COMPLICATIONS: None. COUNTS: Correct. PATIENT NAME: MAYITO CASTORENA ACCOUNT #: [id number] FINDINGS: A 12-week size globular uterus. Normal tubes and ovaries bilaterally. Endometrial implants on the left pe lvic sidewall, left and right posterior cul-de-sac, and right pelvic sidewall. Uterine weight was 360 grams in the OR. INDICATIONS: The patient is a 41-year-old 4, para 2, who presented with heavy painful cycles. The patient was fo und on ultrasound to have adenomyosis. The patient also has a family history of endomet riosis. The patient is unable to take hormonal contracepti on for cycle and pain control due to MTHFR mutation and factor V Leiden deficiency. Risks, benefits, and alternatives were discussed with the patient. The patient agreed t o robotically assisted total laparoscopic hysterectomy wi th bilateral salpingectomy and possible excision of endometriosis. The patient was also evaluated fo r stress urinary incontinence and was also found to have pelvic prolapse and w ill undergo laparoscopic uterosacral ligament suspension as well as trans obturator tape placement and indicated procedures by Dr. Hood at the time o f hysterectomy. PROCEDURE IN DETAIL: The patient was olman en to the OR with IV in place. She was induced under general anesthesia without difficu lty. The patient was given Ancef preoperatively for pro phylaxis as well as Lovenox 40 mg subcutaneously for DVT prophylaxis. The patient was placed in dorsa l lithotomy position in [facility]. She was prepped and draped in the usua l sterile manner. Atwood catheter was placed in bladder sterilely. Anteri or lip of the cervix was grasped with a single tooth tenaculum. T he uterus was gently sounded to 10 cm. Cervix was then gently dilat ed from size 9 to size 15 using Edmar dilators. Stay sutures of 0 Prolene were placed at 3 o'clock an d 9 o'clock. A 10 cm SANDEEP uterine manipulator, 3.5 cm colpotomizer ring, a nd vaginal occluder were then placed in the uterus on the cervix and in the va noemi respectively. These were attached to the stay sutures. The patient was th en placed flat. Attention was then turned to the abdomen. An 8 mm vertical inc ision was made through the umbilicus. With the abdomen tented up, Veress ne edle was passed through what was felt to be fascia and peritoneum. Hanging dr op test was within normal limits. CO2 gas was then use d to insufflate the abdomen with pressure limit set at 20 mmHg. After pressure limit was achieved, t he Veress needle was removed. An 8 mm bladeless trocar was inserted easily. Laparoscope confirmed safe entry. The patient was then placed in [facility]. Survey of the upper abdomen was within normal limits. Survey of the pelvis revea led enlarged globular uterus. Endometrial implants could be seen in the framing and hanging ior compartment. Three ancillary ports were then pl aced under direct visualization, all 8 mm ports, one in the right lower quadrant, one in left lower quadrant, and an AirSeal port in the left upper quadrant. Laparoscope was removed . Pressure was dropped to 15 mmHg. Robot was docked. Fenestrated bipolar caut karthik was placed in the left lower quadrant. Monopolar scissors were placed i n right lower quadrant. The patient was pretreated with IV Benadryl. ICG dye was then injected intravenously. The patient's pelvis was then thoroughly inspected under Firefly mode and endometrial implant was noted along the left pelvic sidewall, the posterior cul-de-sac, and along the right pelvic sidewall. No lesions were noted in the anterior cul-de-sac or bilateral pe lvic brims. Attention was first turned to the left pelvic sidewall. Ureter was identified. An incision was made in the peritoneum. Hydrodissection was performed. The endometrial implant was then carefully circumscribed and car efully excised. Approximately half of the left peritoneal sidewall was excised . Attention was then turned to the lesion in the right posterior cul-de-sac. With extreme care to avoid injuring rectum, the lesion was carefull y circumscribed and carefully excised. The lesion in the left posterior cul-de-sac was also circumscribed and PATIENT NAME: MAYITO CASTORENA ACCOUNT #: [id number] carefully excised. Attention was then turned to the right pelvic sidewall, questionable lesions were seen on the right pel molina sidewall. Incision was made in the peritoneum and hydrodissection was performed. With care to be w ell away from the ureter, the area of question was then carefully circumscribe d and carefully excised. Attention was then turned to the left round liga ment, left round ligament was cauterized using bipolar ins trument then divided using monopolar scissors. Left fallopian tube was elevated and mesosalpinx was incised from the fimbriated end to the cornual area. The left uteroovarian ligam ent was then cauterized using bipolar instrument then divided using mo nopolar scissors. The bladder was then back filled. Anterior leaf of the peritoneum was then incised and carried out medially to develop the bladder flap. Bladder wa s dissected off the lower uterine segment. Uterine vessels were then skele tonized on the left side. The uterine vessels were then cauterized at the level of the internal cervical os. Attention was then turned to the right side. Rig ht round ligament was cauterized using bipolar instrument then divided using monopolar scissors. Right fallopian tube was elevated, mesos alpinx was incised from the fimbriated end to the cornual area. Right uteroovarian was then cauterized using bipolar instrument then divided using monopolar scissors . Anterior leaf of the peritoneum was then incised and carried out medi ally to meet the other side. Bladder was dissected off the lower uter ine segment. Uterine vessels were then skeletonized on the right side by incising the p osterior peritoneum. The uterine vessels were then cauterized at the level of the internal cervical os. After assuring that the bladder was well dissect ed off the lower uterine segment, colpotomy was perfo rmed at the cervicovaginal junction anteriorly from 10 o'clock to 2 o'clock. Uterine vessels were th en again encountered on the right side, were cauterized using bipolar instru ment and monopolar scissors. Colpotomy was continued post eriorly over to the left side. Left uterine vessels were then cauterized using bipolar instrument, t hen divided using monopolar scissors. Colpotomy was completed. Uterus as wel l as bilateral tubes were delivered through the vagina intact. 0 V-Loc sut ure was then introduced into the pelvis. A sterile sponge and a glove were placed in the vagina to maintain pneumoperitoneum. The vaginal cuff was then clos ed in two layers, first to reapproximate the vaginal mu cosa from the right apex over to the left apex, then same suture was used to reapproximate th e endopelvic fascia from the left apex over to the right apex. Suture was then run back towards the midline, suture was then cut flush with the cuff. Pelvis was the n thoroughly irrigated and inspected under low pressure. Good hemostasis wa s noted. At that point, all robotic instruments were removed. The robot was undocked. Dr. Binta Hood entered the OR and proceeded to perform her port ion of the surgery which will be dictated separately. After all procedures wer e completed, the patient was removed from dorsal lithotomy position, awoken from general anesthesia without difficulty. The patient tolerated the procedure well. Throughout the case, Stephan Blair assisted Dr. Sanjiv manrique as team assistant. He provided protection and retraction. He p erformed suction for visualization. He participated in positioning the patient as well as closure of the wounds. Without his assistance, the surgery coul d not have been performed safely or to adequate accepted medical standards; therefore, his assistance was considered medically indicated and necessary. Dictated By: Dulce Abbott MD Date Dictated: 12/02/2021 16:14:28 Date Transcribed: 12/02/2021 23:30:48 PATIENT NAME: MAYITO CASTORENA ACCOUNT #: [id number] NT/SHE Receipt ID: [id number] Authenticated and Edited by Dulce Abbott MD On 12/07/21 9:22:33 PM Electronically Signed by Dulce Abbott MD on at 0925 PATIENT NAME: MAYITO CASTORENA ACCOUNT #: [id number] 2021-12-02 13:37:00-00:00 [id number] [facility] [address], [place] [address] PATIENT NAME: MAYITO CASTORENA ADMIT DATE: ACCOUNT NO: [id number] ROOM NO: [facility] AGE: 41 SEX: F ADMITTING PHYSICIAN: Dulce Abbott MD ATTENDING PHYSICIAN: Dulce Abbott MD OPERATION DATE: 12/02/2021 PREOPERATIVE DIAGNOSES: 1. Uterine prolapse. 2. Cystocele. 3. Rectocele. 4. Stress urinary incontinence. 5. Obesity. POSTOPERATIVE DIAGNOSES: 1. Uterine prolapse. 2. Cystocele. 3. Rectocele. 4. Stress urinary incontinence. 5. Obesity. PROCEDURES: 1. Laparoscopic bilateral ureterolysis. 2. Laparoscopic uterosacral ligament colpopexy. 3. Transobturator midurethral sling. 4. Cystourethroscopy. 5. Posterior colporrhaphy. SURGEON: Binta Hood M.D. PAINT STOCKMAN: R[employer] resident, Trisha Pickering M.D. ANESTHESIA: General endotracheal and local. ESTIMATED BLOOD LOSS: 75 mL for this portion of the procedure. INDICATIONS: Ms. Castorena is a 41-year-old female who presented with complaints of urinary incontinence and prolapse. She was found to have stage II prolapse. Complex urodynamic testing confirmed urodynamic stress incontinence. After extensive counseling, she elected to hav e surgical intervention at the time of her planned hysterectomy with Dr. Abbott. FINDINGS: Laparoscopy revealed normal-appearing ovaries. Cystourethroscopy revealed ureteral orifices in the normal anatomi marcellus location with excellent bilateral ureteral efflux. There was no evidence of bladder lesions or injury. The urethra was noted to be intact. PROCEDURE IN DETAIL: The patient was fou nd in the operating room where she was PATIENT NAME: MAYITO CASTORENA ACCOUNT #: [id number] prepped and draped in the [facility] sterile fashion in a dorsal lithotomy position. She had previously undergone a robotic hysterect selene and excision of endometriosis. I placed an additional suprapubic port. In the midline suprapubically a 5 mm skin i ncision was made and a 5 mm trocar was placed under direct visualization. The pelvis was examined wi th the above noted findings. A Lucite stent was placed in the vagina. The bladder was further dissected from the pubocervical tissue anteriorly. The course o f the ureter along the right and left pelvic sidewall was visualized in its relationship to the uterosacral ligament. The peritoneum between the uterosacral ligament and the ureter was opened with EndoShears performing ureterolysis i n hopes of preventing medial kinking of the ureter as wel l as to allow for skeletonization of the uterosacral ligament. A 0 Ethibond suture was then placed in the proximal portion of the uterosacral ligament at the level of the ischial spine through the uterosacral ligaments attachment to the posterior vaginal cu ff and anteriorly through the pubocervical tissue plicating the pubocervical t issues apically. This was performed bilaterally and sutures were tied in p lace extracorporeally. The pelvis was then irrigated and reexamined under l ow pressures with hemostasis assured. Dr. Abbott had previously asked t hat a hemostatic agent of Venkatesh place laparoscopically and this was placed. The anterior vaginal epithelium at the mid midur ethra was injected with 0.25% Marcaine with epinephrine. A slightly gr eater than 1 cm incision was made. The vaginal epithelium was sharply dissected from th e underlying urethra. The vaginal epithelium was sharp ly dissected from the underlying urethra towards the ischiopubic ramus bilaterally. At the level of t he clitoris and genitofemoral fold, the skin was injected with 0.25% M arcaine with epinephrine and 3 mm skin incisions made. Through this incision, the transobturator trocar was introduced transversing the underlying muscle, the obturator membrane at its superomedial border and exiting through the previously made v aginal incision. The vaginal sulcus was inspected and noted to be free of any perforations. This was performed bilaterally. Atwood catheter was remove d. Cystourethroscopy was then performed with a 70-degree cystoscope revealing the above noted findings. A complete bladder survey with full bladder disten tion was performed. Atwood catheter was replaced. The sling was then tensio alice using Cosby scissors as a spacer between the mesh and underlying u rethra. Excess mesh was trimmed at the skin margin. The vaginal epi thelium was closed in a continuous fashion with 2-0 Vicryl suture. External skin incisions were clos ed with dermal glue. Trocars were removed under direct visualization. Pneumoperitoneum was released. Skin incisions were injected with 0.25 % Marcaine with epinephrine. Skin incisions were closed with 4-0 Monocryl and dermal glue. The posterior vaginal wall and perineum were injected with 0.25% Marcaine with epinephrine. A small ellipti marcellus incision was made at the introitus and previous scarring excised. The posterior vaginal epitheli um was opened in the midline. The vaginal epithelium was sharply dissected fro m the underlying rectovaginal tissue. The rectovaginal tissue was seri ally plicated with 2-0 PDS suture. The perineal body was reapproximated with 2-0 PDS diamond ture. Good hemostasis was noted. The vaginal epithelium was lightly trimme d. The vaginal epithelium was closed in a continuous fashion with 2-0 Vicryl s uture. Again, good hemostasis was noted. The vagina was irrigated, hemostasis was assured, and the vaginal packing was placed. The patient tolerated the procedure well. Sponge , lap, and needle counts were PATIENT NAME: MAYTIO CASTORENA ACCOUNT #: [id number] correct x2. She was taken to the recovery room i n stable condition. Dictated By: Binta Hood MD Date Dictated: 12/02/2021 13:37:37 Date Transcribed: 12/02/2021 20:13:43 /[facility] Receipt ID: [id number] Authenticated and Edited by Binta Hood MD On 12/04/21 9:47:00 AM at 0949 PATIENT NAME: MAYITO CASTORENA ACCOUNT #: [id number]
--- NOTE | 2022-08-12 18:10 | RAD REPORT ---
EXAM DESCRIPTION: RAD - Thoracic Spine Ap/Lat - 08/12/2022 5:55 pm CLINICAL HISTORY: Back pain FINDINGS: No fracture or dislocation seen
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
[2022-08-12 19:36] VITALS: BP 130/93; O2SAT 98
== END 2022-08-12 18:32 | disposition home or self-care (01) ==
LOC: ER 16:48
DX: M54.6 Pain in thoracic spine (principal); V49.40XA Driver injured in collision with unspecified motor vehicles in traffic accident, initial encounter; Z88.2 Allergy status to sulfonamides
CPT/HCPCS: 72070; 99283

== ENCOUNTER 2022-08-20 15:55 | Emergency (ER) | payer OTHER ==
--- OUTSIDE RECORDS SUMMARY | 2022-08-20 15:58 | XMS REPORT | Continuity of Care Document ---
:1980 Author Organization [facility] t Address [address] [place] [address] [address] [place] [address] Care Team Providers Name Role Phone Dulce Abbott Attending Clinician Unavailable DORIAN_ADAC_Cathey Attending Clinician Unavailable Binta Hood Attending Clinician [phone] Sherry Pineda Attending Clinician Unavailable Belén Blackburn Attending Clinician Unavailable Radiology Attending Clinician Unavailable RADIOLOGY Attending Clinician Unavailable Dulce Abbott Admitting Clinician Unavailable SHERLY_Cathxenia Admitting Clinician Unavailable Belén Blackburn Admitting Clinician Unavailable Payers Payer Name Policy Type Policy Number Effective Date Expiration Date [facility] [id number] 2012 2022 00:00:00 00:00:00 Problems Condition Condition [...] Active Univers ALLERGIE Class ity of S [facility] SULFA Allergy Active Fever [facility] (SULFONA to Medical MIDE substanc ANTIBIOT e ICS) Social History Social Habit Start Date Stop Date Quantity Comments Source Sex Assigned At [birth year] [place] [facility] 00:00:00 00:00:00 Medical Branch Smoking Status Start Date Stop Date Source Never Smoker [facility] Medical Unknown if ever smoked [facility] Medications Ordered Filled Start Stop Current Ordering [...] (Body Mass Index) 2021-10-17 00:00:00 35.7 kg/m2 [facility] BP Systolic 2021-10-17 00:00:00 131 mm[Hg] Janee M edical Procedures Procedure Date / Time Performing Clinician Source Performed Hysterectomy - Laparoscopy 2021-12-02 00:00:00 [facility] Prolapse, Lapro Repr: 2021-12-02 00:00:00 [facility] Uterosacral Lig Colpopexy MR ANKLE LEFT WO CONTRAST 2020-04-17 14:33:38 Requisition, Paper [facility] Cholecystectomy 2007-02-08 00:00:00 [facility] al [...] Department ID 2022-03-13 2022-03-13 Outpatient MEAGAN Abbott, [facility] [id number] [facility] 12:00:00 12:00:[address] 2022-01-26 2022-01-26 Outpatient _[facility] PRIV PRIV 247 [id number] [facility] 00:00:00 00:00:00 _Cathey [id number] Medica l 2022-01-26 2022-01-26 Outpatient _[facility] PRIV PRIV 247 [id number] [facility] 00:00:00 00:00:00 _Cathey [id number] Medica l 2022-01-26 2022-01-26 Binta [facility] [id number] [facility] 00:00:00 00:00:00 [facility] luis manuel Hood _[facility] MD: [address], Office* [address], [place] [address] , Ph. [phone] 2022-01-19 2022-01-19 Outpatient _[facility] PRIV PRIV 247 [id number] [facility] 00:00:00 00:00:00 _Cathey [id number] Medica l 2022-01-19 2022-01-19 Outpatient GC_[facility] PRIV PRIV 247 [id number] [facility] 00:00:00 00:00:00 _Cathey [id number] Medica l 2022-01-06 2022-01-06 Outpatient GC_[facility] PRIV PRIV 247 [id number] [facility] 00:00:00 00:00:00 _Cathey [id number] Medica l 2022-01-06 2022-01-06 Binta [facility] [id number] [facility] 00:00:00 00:00:00 [facility] Medic luis manuel Hood GC_[facility] MD: [address], Office* [address], [place] [address] , Ph. [phone] 2022-01-05 2022-01-05 Outpatient GC_[facility] PRIV PRIV 247 [id number] [facility] 00:00:00 00:00:00 _Sana [id number] Medica l 2021-12-30 2021-12-30 Outpatient GC_[facility] PRIV PRIV 247 [id number] [facility] 00:00:00 00:00:00 _Sana [id number] Medica l 2021-12-30 2021-12-30 Colleen [facility]IV [facility] [id number] [facility] 00:00:00 00:00:00 Daniel HYDRO GENERATION MANAGER: Health - Ia dical [address] GC_[facility] [address], _[address], [place] [address] , Ph. [phone] 2021-12-16 2021-12-16 Outpatient GC_[facility] PRIV PRIV 247 [id number] [facility] 00:00:00 00:00:00 _Sana [id number] Medica l 2021-12-16 2021-12-16 Colleen [facility] [id number] [facility] 00:00:00 00:00:00 OLAYINKA Sanchez: Health - Me dical [address]00 GC_[facility] [address]bekah, _[address], [place] [address] , Ph. [phone] 2021-12-15 2021-12-15 Outpatient GC_[facility] PRIV PRIV 247 [id number] [facility] 00:00:00 00:00:00 _Sana [id number] Medica l 2021-12-14 2021-12-14 Outpatient GC_[facility] PRIV PRIV 247 [id number] [facility] 00:00:00 00:00:00 _Sana [id number] Medica l 2021-12-05 2021-12-05 Outpatient GC_[facility] PRIV PRIV 247 [id number] [facility] 00:00:00 00:00:00 _Cathey [id number] Medica l 2021-12-05 2021-12-05 Binta [facility]:00[facility]00 [facility]00[facility] SHERLY Rivera MD: Lenora [address], Office* [address], [place] [address] , Ph. [phone] 2021-12-04 2021-12-04 Outpatient GC_[facility] PRIV PRIV 247 [id number] [facility] 00:00:00 00:00:00 _Cathey [id number] Medica l 2021-12-02 2021-12-03 Inpatient MEAGAN Abbott, [facility] MEDI.01 [id number] [facility] 05:02:00 11:19:[address] 2021-11-28 2021-11-28 Outpatient GC_[facility] PRIV PRIV 247 [id number] [facility] 00:00:00 00:00:00 _Cathey [id number] Medica l 2021-11-25 2021-11-25 Outpatient GC_[facility] PRIV PRIV 247 [id number] [facility] 00:00:00 00:00:00 _Cathey [id number] Medica l 2021-10-31 2021-10-31 Outpatient GC_[facility] PRIV PRIV 247 [id number] [facility] 00:00:00 00:00:00 _Cathey [id number] Medica l 2021-10-31 2021-10-31 Binta [facility] 00:00:00 00:00:00 Dulce [facility] Medic SHERLY Rivera MD: [address], Office* [address], [place] [address] , Ph. [phone] 2021-10-27 2021-10-27 Outpatient GC_[facility] PRIV PRIV 247 [id number] [facility] 00:00:00 00:00:00 _Cathey [id number] Medica l 2021-10-17 2021-10-17 Outpatient GC_[facility] PRIV PRIV [facility] [id number] [facility] 00:00:00 00:00:00 _Cathey [id number] Medica l 2021-10-17 2021-10-17 Binta PRIV [place] [facility] 00:00:00 00:00:[address] [facility] - Medic al Sana, _[facility] MD: [address], Office* [address], [place] [address] , Ph. [phone] 2021-10-17 2021-10-17 Outpatient Sana, PRIV PRIV [id number] 00:00:00 00:00:00 Binta [id number] Dulce [id number] 2021-10-16 2021-10-16 Outpatient _[facility] PRIV PRIV [facility] [id number] [facility] 00:00:00 00:00:00 _Cathey [id number] Medica l 2021-10-07 2021-10-07 Outpatient [facility] PRIV PRIV [facility] [id number] [facility] 00:00:00 00:00:00 _Cathey [id number] Medica l 2021-05-02 2021-05-02 Outpatient MEAGAN Pineda, [facility] [id number] [facility] 09:44:00 09:44:00 [facility] 2020-08-19 2020-08-19 Outpatient MEAGAN Blackburn, [facility] ROSMERY [id number] [facility] 12:00:00 12:00:00 Belén Wells [facility] 2020-04-17 2020-04-17 Hospital Radiology [facility] [id number] Univers 07:37:04 23:59:00 [id number] [facility] [id number] [facility] [address] 2020-04-17 2020-04-17 Outpatient R RADIOLOGY [facility] [id number] Univers 00:00:00 00:00:00 ity [facility] Results Test Description Test Time Test Comments Results Result Comments Source Bacteria identified in Urine by Culture 2022-01-08 00:00:00 Test Item Value Reference Range Interpretation Comme nts Bacteria identified in Urine by Culture (test code = 630-4) no g rowth no growth [facility] MedicalUrinalysis complete panel - [id number] 00:00:00 Test Item Value Reference Range Interpretation Comments Specific gravity of Urine 1.013 1.003-1.030 (test code = 2965-2) pH of Urine (test code = 7.0 5.0-8.0 2756-5) Protein [Presence] in Urine by negative negative Test strip (test code = 54154-4) Glucose [Presence] in Urine by negative negative Test strip (test code = 72483-9) Ketones [Presence] in Urine by negative negative Test strip (test code = 2514-8) Urobilinogen [Units/volume] in 0.2 mg/dL 0.2-1.0 Urine by Test strip (test code = 49122-7) Bilirubin.total [Presence] in negative negative Urine by Test strip (test code = 5770-3) Hemoglobin [Presence] in Urine negative negative by Test strip (test code = 5794-3) Nitrite [Presence] in Urine by negative negative Test strip (test code = 5802-4) Crystals [Presence] in Urine none none by Automated (test code = 33486-4) Leukocytes [Presence] in Urine 0-4 0-4 by Automated (test code = 41708-5) Erythrocytes [Presence] in none seen none seen Urine by Automated (test code = 30311-3) RBC casts [Presence] in Urine none seen 0-1 by Computer assisted method (test code = 64650-7) Hyaline casts [Presence] in 0-4 0-4 Urine by Automated (test code = 14765-9) Epithelial cells [#/area] in few none-few Urine sediment by Automated count (test code = 28858-1) Granular casts [Presence] in none seen 0-1 Urine by Computer assisted method (test code = 53386-6) Bacteria [#/area] in Urine none none-few sediment by Automated count (test code = 82976-3) Leukocyte esterase [Presence] negative negative in Urine by Test strip (test code = 5799-2) Color of Urine (test code = yellow yellow, straw, katie 5778-6) Character of Urine (test code clear clear = 80022-5) [facility] MedicalBacteria identified in Urine by [id number] 00:00:00 Test Item Value Reference Range Interpretation Comments Bacteria identified in Urine by no growth no growth Culture (test code = 630-4) [facility] MedicalUrinalysis complete panel - [id number] 00:00:00 Test Item Value Reference Range Interpretation Comments Specific gravity of Urine 1.009 1.003-1.030 (test code = 2965-2) pH of Urine (test code = 8.0 5.0-8.0 2756-5) Protein [Presence] in Urine by negative negative Test strip (test code = 96060-9) Glucose [Presence] in Urine by negative negative Test strip (test code = 78884-5) Ketones [Presence] in Urine by negative negative Test strip (test code = 2514-8) Urobilinogen [Units/volume] in 0.2 mg/dL 0.2-1.0 Urine by Test strip (test code = 96317-4) Bilirubin.total [Presence] in negative negative Urine by Test strip (test code = 5770-3) Hemoglobin [Presence] in Urine negative negative by Test strip (test code = 5794-3) Nitrite [Presence] in Urine by negative negative Test strip (test code = 5802-4) Crystals [Presence] in Urine few none A by Automated (test code = 47179-8) Leukocytes [Presence] in Urine 0-4 0-4 by Automated (test code = 87955-7) Erythrocytes [Presence] in none seen none seen Urine by Automated (test code = 12325-3) RBC casts [Presence] in Urine none seen 0-1 by Computer assisted method (test code = 31512-9) Hyaline casts [Presence] in 0-4 0-4 Urine by Automated (test code = 31920-7) Epithelial cells [#/area] in few none-few Urine sediment by Automated count (test code = 00349-2) Granular casts [Presence] in none seen 0-1 Urine by Computer assisted method (test code = 11637-6) Bacteria [#/area] in Urine none none-few sediment by Automated count (test code = 49261-8) Leukocyte esterase [Presence] negative negative in Urine by Test strip (test code = 5799-2) Color of Urine (test code = yellow yellow, straw, katie 5778-6) Character of Urine (test code clear clear = 33237-8) [facility] MedicalBacteria identified in Urine by [id number] 00:00:00 Test Item Value Reference Range Interpretation Comments Bacteria identified in Urine by no growth no growth Culture (test code = 630-4) [facility] MedicalUrinalysis complete panel - [id number] 00:00:00 Test Item Value Reference Range Interpretation Comments Specific gravity of Urine 1.009 1.003-1.030 (test code = 2965-2) pH of Urine (test code = 8.0 5.0-8.0 2756-5) Protein [Presence] in Urine by negative negative Test strip (test code = 35326-9) Glucose [Presence] in Urine by negative negative Test strip (test code = 35678-4) Ketones [Presence] in Urine by negative negative Test strip (test code = 2514-8) Urobilinogen [Units/volume] in 0.2 mg/dL 0.2-1.0 Urine by Test strip (test code = 05954-8) Bilirubin.total [Presence] in negative negative Urine by Test strip (test code = 5770-3) Hemoglobin [Presence] in Urine negative negative by Test strip (test code = 5794-3) Nitrite [Presence] in Urine by negative negative Test strip (test code = 5802-4) Crystals [Presence] in Urine few none A by Automated (test code = 94903-7) Leukocytes [Presence] in Urine 0-4 0-4 by Automated (test code = 55351-2) Erythrocytes [Presence] in none seen none seen Urine by Automated (test code = 44608-0) RBC casts [Presence] in Urine none seen 0-1 by Computer assisted method (test code = 60796-2) Hyaline casts [Presence] in 0-4 0-4 Urine by Automated (test code = 47324-5) Epithelial cells [#/area] in few none-few Urine sediment by Automated count (test code = 76943-9) Granular casts [Presence] in none seen 0-1 Urine by Computer assisted method (test code = 74089-0) Bacteria [#/area] in Urine none none-few sediment by Automated count (test code = 41808-1) Leukocyte esterase [Presence] negative negative in Urine by Test strip (test code = 5799-2) Color of Urine (test code = yellow yellow, straw, katie 5778-6) Character of Urine (test code clear clear = 37714-8) Janee [id number] 17:38:00 Test Item Value Reference Range Interpretation Comments SURGICAL (test code = SR) R UN DATE: 12/03/21 [facility] PAGE 1 RUN TIME: 1738 Specimen Inquiry RUN USER: INTERFACE P ATIENT: MAYITO CASTORENA [facility] #: [id number] AGE/SX: 41/F ROOM: [facility] RE12/02/21JOYCE DR: Dulce Abbott MD : 80 BED: A DIS: 12/03/21 STATUS: DIS Sandrine TLOC: SPEC #: [id number] RECD: 12/02/21 STATUS: PATRICIA GONSALVES #: [id number] NEELAM: 12/02/21 [facility] DR: Dulce Abbott MD ENTERED: 12/02/21 SP TYPE: SURGICAL OTHR DR: Binta Hood MD, Jana K MDORDERED: ANATOMIC SPEC/5, SPEC TRACK, 60017/4, 85888 COPIES TO: Binta Hood MD [address] [facility] [address] [place], [place] [address] [email or web address] Kelsea Watters MD [address] [facility] 1 [place], [place] [address] Dulce Abbott MD [address] [facility] [address] [place] [address] [email or web address] PROCEDURES: 35611 (12/02/21) 99088 (12/02/21) TISSUES: A. 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 Motor Teacher sections are submitted as follows: E 1-E2 anterior and posterior cervix E3-E4 anterior endomyometrium E5-E6 posterior endomyometrium E 7 nodule E8-E9 client service representative sections of right fallopian tube with entire fimbria CONTINUED ON NEXT PAGE R UN DATE: 12/03/21 [facility] PAGE 3 RUN TIME: 1738 Specimen Inquiry RUN USER: INTERFACE S PEC #: [id number] PATIENT: MAYITO CASTORENA #[id number] (Continued) GROSS DESCRIPTION (Continued) E10-A11 client service representative sections of left fallopian tube with entire snchjubrn36/25/22 Technical component performed at [employer] [address] , [place] [address] Unless gross only, the diagnosis is based [...] 12/03/21 1738 END OF REPORT CBC W/AUTO [id number] 06:07:00 Test Item Value Reference Range Interpretation [...] NORMAL NORMAL code = PLTMR) UR HCG [id number] 06:43:00 Test Item Value Reference Range Interpretation [...] cted 48 hours later and tested. test, [id number] 06:30:00 Test Item Value Reference Range Interpretation Comments ur HCG qual (test code = ur HCG negative qual) performing lab: (test code = performing lab:) [facility] Medical[facility]regnancy test, [id number] 06:30:00 Test Item Value Reference Range Interpretation Comments ur HCG qual (test code = ur HCG negative qual) performing lab: (test code = performing lab:) [facility] Medicalpregnancy test, [id number] 06:30:00 Test Item Value Reference Range Interpretation Comments ur HCG qual (test code = ur HCG negative qual) performing lab: (test code = performing lab:) [facility] MedicalAG HEPATITIS B [id number] 21:27:00 Test Item Value Reference Range Interpretation Comments AG HEPATITIS B SURFACE (test code NONREACTIVE NONREACTIVE = HBSAG) AB HEPATITIS C [id number] 21:27:00 Test Item Value Reference Range Interpretation Comments AB HEPATITIS C (test code = NONREACTIVE NONREACTIVE HCVAB) SIGNAL TO CUTOFF (test code = 0.02 <0.80 N CUTOFF) AB HIV 1 21:27:00 Test Item Value Reference Range Interpretation Comments AB HIV 1 2 (test NONREACTIVE NONREACTIVE Done by [facility] code = YFF65VQ) 4th Gen HIV Ag/Ab Combo Screen URINALYSIS [id number] 17:21:00 Test Item Value Reference Range Interpretation [...] URINE SAMPLE: CLEAN CATCHCOVID 19 Asymptomatic IH [id number] 17:04:00 Test Item Value Reference Range Interpretation [...] and/o r diagnosis of CO VID-19 under Peucdpc72 4(b)(1) of the Act, 21 U.S .C. 360bbb-3(b)(1), unless theauthorizatio n is terminated or r evoked sooner. HCG SERUM [id number] 16:30:00 Test Item Value Reference Range Interpretation Comments HCG SERUM QUAL (test code = HCGQL) NEGATIVE BASIC METABOLIC [id number] 15:58:00 Test Item Value Reference Range Interpretation [...] CA) 8.7 mg/dL 8.4-10.2 N CBC W/AUTO [id number] 15:02:00 Test Item Value Reference Range Interpretation [...] = PLTMR) Bacteria identified in Urine by [id number] 00:00:00 Test Item Value Reference Range Interpretation Comments Bacteria identified in Urine by no growth no growth Culture (test code = 630-4) [facility] Medical[facility] complete panel - [id number] 00:00:00 Test Item Value Reference Range Interpretation Comments Specific gravity of Urine 1.007 1.003-1.030 (test code = 2965-2) pH of Urine (test code = 6.0 5.0-8.0 2756-5) Protein [Presence] in Urine by negative negative Test strip (test code = 86852-3) Glucose [Presence] in Urine by negative negative Test strip (test code = 55017-9) Ketones [Presence] in Urine by negative negative Test strip (test code = 2514-8) Urobilinogen [Units/volume] in 0.2 mg/dL 0.2-1.0 Urine by Test strip (test code = 81632-4) Bilirubin.total [Presence] in negative negative Urine by [...] Microscopy high power field (test code = 38888-4) RBC casts [Presence] in Urine none seen 0-1 sediment by Light microscopy (test code = 72331-3) Hyaline casts [Presence] in 0-4 0-4 Urine sediment by Light microscopy (test code = 24922-8) Epithelial cells [Presence] in few none-few Urine sediment by Light microscopy (test code = 51538-7) Granular casts [Presence] in none seen 0-1 Urine sediment by Light microscopy (test code = 88342-7) Bacteria [Presence] in Urine none none-few sediment by Light microscopy (test code = 87476-8) Leukocyte esterase [Presence] negative negative in Urine by Test strip (test code = 5799-2) Color of Urine (test code = yellow yellow, straw, katie 5778-6) Character of Urine (test code clear clear = 72601-8) [facility] PELVIS [id number] 00:00:00 [facility] : 1980 Sex: F Patient Name: MAYITO CASTORENA Unit No: [id number] EXAMS: CPT CODE: [id number] US PELVIS [id number] PROCEDURE INFORMATION: Exam: US Pelvis Complete (Transabdominal), [...] Technologist: Adrianna Alvarez RDMS Probe: Trnscrbd D/ (6851) GCD.CPS Orig Print D/T: S: 05/02/2021 (1215) [facility] as NAME: MAYITO CASTORENA Radiology Department PHYS: Sherry Kaye MD [address] : 1980 AGE: 40 SEX: F [place], [place] [address] LOC: F.RAD PHONE #: [phone] EXAM DATE: 05/02/2021 STATUS: REG CLI FAX #: [phone] RAD NO: Page 1 Signed Report Patient Name: MAYITO CASTORENA Unit No: [id number] EXAMS: CPT CODE: [id number] US PELVIS COMPLETE 06206 <Continued> [facility] NAME: EDUARDOTaniaMAYITO GUILLAUME Radiology Department PHYS: Sherry Kaye MD [address] : 1980 AGE: 40 SEX: F [place], [place] [address] LOC: F.RAD PHONE #: [phone] EXAM DATE: 05/02/2021 STATUS: REG CLI FAX #: [phone] RAD NO: Page 2 Signed Report- US TRANSVAGINAL [id number] 00:00:00 [facility] : 1980 Sex: F Patient Name: MAYITO CASTORENA Unit No: [id number] EXAMS: CPT CODE: [id number] US TRANSVAGINAL W/PELVIS 73517 PROCEDURE INFORMATION: Exam: US Pelvis Complete (Transabdominal), [...] Watters MD Technologist: Adrianna Alvarez RDMS Probe: [id number] Trnscrbd D/ (1215) GCD.CPS Orig Print D/T: S: 05/02/2021 (1215) [facility]: MAYITO CASTORENA Radiology Department PHYS: Sherry Kaye MD [address] : 1980 AGE: 40 SEX: F [place], [place] [address] LOC: DREW PHONE #: [phone] EXAM DATE: 05/02/2021 STATUS: REG CLI FAX #: [phone] RAD NO: Page 1 Signed Report Patient Name: MAYITO CASTORENA Unit No: [id number] EXAMS: CPT CODE: [id number] US TRANSVAGINALW/PELVIS 78508 <Continued> [facility] NAME: MAYITO CASTORENA Radiology Department PHYS: Sherry Kaye MD [address] : 1980 AGE: 40 SEX: F [place], [place] [address] LOC: F.RAD PHONE #: [phone] EXAM DATE: 05/02/2021 STATUS: REG [place]IF[place] #: [phone] RAD NO: Page 2 Signed Report- DUP AB/PEL/SC/[id number] 00:00:00 [facility] : 1980 Sex: F Patient Name: MAYITO CASTORENA Unit No: [id number] EXAMS: CPT CODE: [id number] DUP AB/PEL/SC/[id number] PROCEDURE INFORMATION: Exam: US Pelvis Complete (Transabdominal), [...] MD CC: Kelsea Watters MD Technologist: Adrianna lAvarez RDMS Probe: Trnscrbd D/ (1215) GCD.CPS Orig Print D/T: S: 05/02/2021 (3866) [facility] Radiology Department PHYS: Sherry Kaye MD [address] : AGE: 40 SEX: F [place], [place] [address] LOC: F.RAD PHONE #: [phone] EXAM DATE: 05/02/2021 STATUS: REG CLI FAX #: [phone] RAD NO: Page 1 Signed Report Patient Name: MAYITO CASTORENA Unit No: [id number] EXAMS: CPT CODE: [id number] DUP AB/PEL/SC/LTD 13862 <Continued> [facility] NAME: MAYITO CASTORENA Radiology Department PHYS: Sherry Sellers MD [address] : 1980 AGE: 40 SEX: F [place], [place] [address] LOC: DREW PHONE #: [phone] EXAM DATE: 05/02/2021 STATUS: REG CLI FAX #: [phone] RADNO: Page 2 Signed ReportMR ANKLE LEFT WO [id number] 15:25:27Questionable resolving contusion at the level of [...] ligamentcomplex or spring ligament complex derangement.No tendon derangement.[facility] Notes Date/Time Note Provider Source 2021-12-03 08:03:00-00:00 [facility] ([facility]) Gynecology Post Prog Note REPORT#:[id number] REPORT STATUS: Signed DATE:12/03/21 TIME: 08 PATIENT: MAYITO CASTORENA UNIT #: [id number] ROOM/BED: [address] : [birth year] AGE: 41 SEX: F ATTEND: Dulce Abbott MD ADM AUTHOR: Dulce Abbott MD * ALL edits or amendments must be made on the [employer]/computer document * General Post-op: day 1 Status [...] % (Auto) (14.5 - 29.7 %) 17.3 [place] % (Auto) (3.6 - 10.2 %) 10.5 H Eos % (Auto) (0.0 - 3.0 %) 0.1 Baso % (Auto) (0.1 - 0.9 %) 0.1 Neut # (Auto) (K/mm3) 6.7 Lymph # (Auto) (K/mm3) 1.6 [place] # (Auto) (K/mm3) 1.0 Eos # (Auto) (K/mm3) 0.01 Baso # (Auto) (K/mm3) 0.0 Diagnosis, Assessment Plan Free Text A P: Doing well. HD stable. Good GI fxn and U/O. Plan: Voiding trial PO pain meds Cont reg diet D/C after voiding trial Rx already at home per Dr. Hood Electronically Signed by Dulce Abbott MD on at 0806 RPT #:[id number] END OF REPORT 2021-12-03 07:08:00-00:00 [facility] [facility] Gynecology Post Prog Note REPORT#:[id number] REPORT STATUS: Signed DATE:12/03/21 TIME: 0708 PATIENT: MAYITO CASTORENA UNIT #: [id number] ROOM/BED: [address] : 80 AGE: 41 SEX: F ATTEND: Dulce Abbott MD ADM AUTHOR: Binta Hood MD * ALL edits or amendments must be made on the [employer]/computer document * General ORM Surgeries: Surgery Date [...] % (Auto) (14.5 - 29.7 %) 17.3 [place] % (Auto) (3.6 - 10.2 %) 10.5 H Eos % (Auto) (0.0 - 3.0 %) 0.1 Baso % (Auto) (0.1 - 0.9 %) 0.1 Neut # (Auto) (K/mm3) 6.7 Lymph # (Auto) (K/mm3) 1.6 [place] # (Auto) (K/mm3) 1.0 Eos # (Auto) (K/mm3) 0.01 Baso # (Auto) (K/mm3) 0.0 Diagnosis, Assessment Plan Free Text A P: -voiding trial -d/c instructions reviewed Electronically Signed by Binta Hood MD on at 0709 [facility] #:[id number] END OF REPORT 2021-12-02 16:14:00-00:00 [id number] [facility] [address] [address] PATIENT NAME: MAYITO CASTORENA ADMIT DATE: ACCOUNT NO: [id number] ROOM NO: [facility] AGE: 41 SEX: F ADMITTING [...] by Dr. Hood SURGEONS: Dulce Abbott MD, property caretaker Binta Hood MD, urogynecologist. CLAIM EXAMINER: NEO [place]. ANESTHESIA: General. ESTIMATED BLOOD LOSS: 150 mL. INTRAVENOUS FLUIDS: 800 mL. URINE OUTPUT: 200 mL of clear urine. COMPLICATIONS: None. COUNTS: Correct. PATIENT NAME: MAYITO CASTORENA ACCOUNT #: [id number] FINDINGS: A 12-week size globular uterus. Normal [...] placed in dorsa l lithotomy position in [facility]. She was prepped and draped [...] entry. The patient was then placed in [facility]. Survey of the upper abdomen was within normal limits. Survey of the pelvis revea led enlarged globular uterus. Endometrial implants could be seen in the tile erector ior compartment. Three ancillary ports were then [...] PATIENT NAME: MAYITO CASTORENA ACCOUNT #: [id number] carefully excised. Attention was then turned to [...] Stephan Blair assisted Dr. Sanjiv manrique as certified physician assistant. He provided protection and retraction. He [...] PATIENT NAME: MAYITO CASTORENA ACCOUNT #: [id number] NT/SHE Receipt ID: [id number] Authenticated and Edited by Dulce Abbott MD On 12/07/21 9:22:33 PM Electronically Signed by Dulce Abbott MD on at 0925 PATIENT NAME: MAYITO CASTORENA ACCOUNT #: [id number] 2021-12-02 13:37:00-00:00 [id number] [facility] [address], [place] [address] PATIENT NAME: MAYITO CASTORENA ADMIT DATE: ACCOUNT NO: [id number] ROOM NO: [facility] AGE: 41 SEX: F ADMITTING [...] 5. Posterior colporrhaphy. SURGEON: Binta Hood M.D. CLAIM EXAMINER: R4 resident, Trisha Pickering M.D. ANESTHESIA: General [...] PATIENT NAME: MAYITO CASTORENA ACCOUNT #: [id number] prepped and draped in the [facility] sterile fashion in a dorsal lithotomy position. [...] lap, and needle counts were PATIENT NAME: MAYITO CASTORENA ACCOUNT #: [id number] correct x2. She was taken to the recovery room i n stable condition. Dictated By: Binta Hood MD Date Dictated: 12/02/2021 13:37:37 Date Transcribed: 12/02/2021 20:13:43 /[facility] Receipt ID: [id number] Authenticated and Edited by Binta Hood MD On 12/04/21 9:47:00 AM at 0949 PATIENT NAME: MAYITO CASTORENA ACCOUNT #: [id number]
[2022-08-20] MEDS ORDERED: NA CHLORIDE 0.9% 1,000 ML ONE (16:33)
[2022-08-20] MEDS ORDERED: METOCLOPRAMIDE 10 MG/2mL INJ ONE (16:33)
[2022-08-20] MEDS ORDERED: DIPHENHYDRAMINE 50 MG/ML VIAL ONE (16:33)
[2022-08-20] MEDS ORDERED: ACETAMINOPHEN 500 MG TAB ONE (16:33)
--- NOTE | 2022-08-20 16:53 | RAD REPORT ---
EXAM DESCRIPTION: CT - Head Brain Wo Cont - 08/20/2022 4:48 pm CLINICAL HISTORY: HEADACHE Headache, drowsiness COMPARISON: No comparisons TECHNIQUE: All CT scans are performed using dose optimization technique as appropriate and may inclu de automated exposure control or mA/KV adjustment according to patient size. FINDINGS: No intracranial hemorrhage, hydrocephalus or extra-axial fluid collection.No areas of brai n edema or evidence of midline shift. The paranasal sinuses and mastoids are clear. The calvarium is intact. IMPRESSION: No acute intracranial abnormality.
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
[2022-08-20 19:35] VITALS: O2SAT 100
[2022-08-20 19:38] VITALS: BP 110/70
== END 2022-08-20 18:03 | disposition home or self-care (01) ==
LOC: ER 15:55
DX: R51.9 Headache, unspecified (principal); R20.2 Paresthesia of skin; Z88.2 Allergy status to sulfonamides
CPT/HCPCS: 70450; 96375; 96374; 99284; J2765; J1200; J7030